=== PATIENT | female | born 1970 | race Caucasian/White ===

== ENCOUNTER → 2016-05-23 | Outpatient (CLI) | payer OTHER ==
[2016-05-23 07:09] LABS: BASO % 0.4 % (0.0-1.0); EOS # 0.2 K/mm3 (0.0-0.50); EOS % 2.8 % (0.0-3.0); LARGE UNSTAINED CELL # 0.1 K/mm3 (0.0-0.4); LARGE UNSTAINED CELL % 1.5 % (0.0-4.0); LYMPH # 2.3 K/mm3 (1.5-4.5); LYMPH % 36.5 % (24.0-44.0); MEAN CORPUSCULAR HEMOGLOBIN 28.7 pg (27.0-33.0); MEAN CORPUSCULAR VOLUME 89.7 fl (80.0-96.0); MONO # 0.3 K/mm3 (0.0-0.8); MONO % 4.8 % (0.0-5.0); NEUTROPHILS # 3.4 K/mm3 (1.8-7.7); NEUTROPHILS % 54.1 % (36.0-66.0); PLATELET COUNT, AUTOMATED 292 k/mm3 (150-450); RED CELL DISTRIBUTION WIDTH 12.4 % (11.5-14.5); WHITE BLOOD COUNT 6.2 K/mm3 (4.0-10.0)
[2016-05-23 07:41] LABS: ALBUMIN 3.6 GM/DL (3.2-5.2); ALKALINE PHOSPHATASE 85 U/L (45-117); ALT/SGPT 18 U/L (12-78); ANION GAP 6 MEQ/L (8-16); AST/SGOT 10 U/L (15-37); BILIRUBIN,TOTAL 0.2 MG/DL (0.2-1.0); BLOOD UREA NITROGEN 19 MG/DL (7-18); CALCIUM LEVEL 8.6 MG/DL (8.5-10.1); CARBON DIOXIDE LEVEL 33 MEQ/L (21-32); CHLORIDE LEVEL 102 MEQ/L (98-107); CHOLESTEROL LEVEL 196 MG/DL (<200); CREATININE FOR GFR 0.97 MG/DL (0.55-1.02); FREE T4 0.82 NG/DL (0.76-1.46); GLOMERULAR FILTRATION RATE > 60.0 (>58); GLUCOSE, FASTING 99 MG/DL (70-105); POTASSIUM SERUM 4.2 MEQ/L (3.5-5.1); SODIUM LEVEL 141 MEQ/L (136-145); TOTAL PROTEIN 7.6 GM/DL (6.4-8.2); TRIGLYCERIDES LEVEL 178 MG/DL (<150)
[2016-05-23 10:55] LABS: FOLATE 9.9 NG/ML; VITAMIN B12 LEVEL 423 PG/ML
== END ==
LOC: M LAB 06:04
PROVIDERS: ATTEND Emergency Medicine
DX: I10 Essential (primary) hypertension (principal); F43.23 Adjustment disorder with mixed anxiety and depressed mood

== ENCOUNTER → 2018-09-20 | Outpatient (CLI) | payer OTHER ==
[2018-09-20 13:53] LABS: ALBUMIN 3.6 GM/DL (3.2-5.2); ALT/SGPT 18 U/L (12-78); BILIRUBIN,TOTAL 0.2 MG/DL (0.2-1.0); BLOOD UREA NITROGEN 16 MG/DL (7-18); CALCIUM LEVEL 8.8 MG/DL (8.5-10.1); CARBON DIOXIDE LEVEL 30 MEQ/L (21-32); CHLORIDE LEVEL 107 MEQ/L (98-107); CHOLESTEROL LEVEL 220 MG/DL (<200); CHOLESTEROL RISK RATIO 4.583 (<5); GLOMERULAR FILTRATION RATE > 60.0 (>51); GLUCOSE, FASTING 95 MG/DL (70-100); HDL CHOLESTEROL 48 MG/DL (>40); LDL CHOLESTEROL 142 MG/DL (<100); NON-HDL-C 172 MG/DL; POTASSIUM SERUM 4.7 MEQ/L (3.5-5.1); SODIUM LEVEL 142 MEQ/L (136-145); TOTAL PROTEIN 7.5 GM/DL (6.4-8.2); TRIGLYCERIDES LEVEL 148 MG/DL (<150)
[2018-09-20 13:59] LABS: HEMOGLOBIN A1c 6.2 %
== END ==
LOC: M SMT 10:33
PROVIDERS: ATTEND Physician Assistant
DX: I10 Essential (primary) hypertension (principal); G47.00 Insomnia, unspecified; E66.9 Obesity, unspecified

== ENCOUNTER → 2018-12-22 | Outpatient (CLI) | payer OTHER ==
[2018-12-22 17:46] LABS: BLOOD UREA NITROGEN 17 MG/DL (7-18); CALCIUM LEVEL 9.2 MG/DL (8.5-10.1); CARBON DIOXIDE LEVEL 30 MEQ/L (21-32); CHLORIDE LEVEL 103 MEQ/L (98-107); CREATININE FOR GFR 1.03 MG/DL (0.55-1.30); GLOMERULAR FILTRATION RATE > 60.0 (>51); GLUCOSE, FASTING 126 MG/DL (70-100); SODIUM LEVEL 138 MEQ/L (136-145)
== END ==
LOC: M WUC 12:27
PROVIDERS: ATTEND Physician Assistant
DX: I10 Essential (primary) hypertension (principal)

== ENCOUNTER 2019-10-16 09:09 | Emergency (ER) | payer OTHER ==
[~2019-10-16] VITALS: Ht 154.9 cm; Wt 86.4 kg
[2019-10-16] MEDS ORDERED: GABA-843 (10:17)
[2019-10-16] MEDS ORDERED: PROP40TA62 (10:17)
[2019-10-16] MEDS ORDERED: FAMO40TA3 (10:17)
[2019-10-16] MEDS ORDERED: MYRB50TA (10:17)
[2019-10-16] MEDS ORDERED: VIIB10TA (10:17)
--- NOTE | 2019-10-16 11:05 | REPVR ---
PROCEDURE INFORMATION: Exam: XR Left Knee Exam date and time: 10/16/2019 10:45 AM Age: 49 years old Clinical indication: Pain; Knee; Left; Additional info: Nontraumatic pain TECHNIQUE: Imaging protocol: XR Left knee. Views: Frontal, lateral, 2 oblique, and patellar views. COMPARISON: No relevant prior studies available. FINDINGS: Bones/joints: Normal. Soft tissues: Normal. IMPRESSION: No acute findings. Electronically signed by: Des Bush On 10/16/2019 11:05:30 AM
[2019-10-16] MEDS ORDERED: MOBI4TAB PO (11:21)
[2019-10-16 11:28] VITALS: BP 155/96
[2019-10-16] MEDS ORDERED: IBUPROFEN 600MG TAB PO ONE (11:30)
== END 2019-10-16 11:41 | disposition home or self-care (01) ==
LOC: M ED 09:09
DX: M25.562 Pain in left knee (principal); I10 Essential (primary) hypertension; K21.9 Gastro-esophageal reflux disease without esophagitis; F33.9 Major depressive disorder, recurrent, unspecified; G89.29 Other chronic pain; M54.9 Dorsalgia, unspecified; Z79.899 Other long term (current) drug therapy; Z88.0 Allergy status to penicillin; Z88.1 Allergy status to other antibiotic agents; Z88.2 Allergy status to sulfonamides; Z88.8 Allergy status to other drugs, medicaments and biological substances

== ENCOUNTER → 2020-10-08 | Outpatient (CLI) | payer OTHER ==
[~2020-10-08] MED LIST: FAMO40TA3; GABA-282; MOBI4TAB PO; MYRB50TA; PROP40TA62; VIIB10TA
--- NOTE | 2020-10-08 14:01 | REPMRS ---
Patient History The patient states she has not had a clinical breast exam in over a year. Patient is postmenopausal. Family history of breast cancer at age 50 or over in paternal grandmother, breast cancer at age 50 or over in maternal grandmother, pancreatic cancer at age 50 in paternal aunt. Patient states no breast complaints today. Patient has signed MRS History Sheet. Digital Woman Screen Mammo: October 08, 2020 - Exam #: [id number] Bilateral CC and MLO view(s) were taken. Technologist: Consuelo Smyth, Technologist Prior study comparison: September 20, 2018, bilateral digital mammo screening bilat, performed at [facility]. May 23, 2016, bilateral digital mammo screening bilat, performed at [facility]. September 22, 2014, bilateral digital mammo screening bilat, performed at [facility] [employer]. FINDINGS: There are scattered fibroglandular densities. The Volpara volumetric breast density category is:B. There has been no change in the appearance of the mammogram from the prior studies. There is a mild amount of scattered fibroglandular density which is fairly symmetric. There is no interval development of dominant mass, architectural distortion, or grouped microcalcification suggestive of malignancy. 3-D tomosynthesis shows no additional findings. Assessment: BI-RADS/ACR category 1 mammogram. Negative Mammogram. Recommendation Routine screening mammogram of both breasts in 1 year (for women over age 40). This patient's [facility] Lifetime Breast Cancer Risk is estimated at 19.8 %. This mammogram was interpreted with the aid of an FDA-approved computer-aided dectection system. Electronically Signed By: Jaylon Wallace MD 10/08/20 [id number]
== END ==
LOC: M WHC 12:51
PROVIDERS: ATTEND Family Medicine
DX: Z12.31 Encounter for screening mammogram for malignant neoplasm of breast (principal); Z78.0 Asymptomatic menopausal state; Z80.3 Family history of malignant neoplasm of breast; Z80.8 Family history of malignant neoplasm of other organs or systems

== ENCOUNTER → 2020-11-20 | Outpatient (CLI) | payer OTHER ==
[~2020-11-20] MED LIST changes: -FAMO40TA3; +FAMO40TA3 PO; -MYRB50TA; +MYRB50TA PO; +PRIM50TA6 PO; -VIIB10TA; +VIIB10TA PO; +VITA200015 PO
== END ==
LOC: M LABSMTC 09:21
PROVIDERS: ATTEND Anesthesiology
DX: Z20.828 Contact with and (suspected) exposure to other viral communicable diseases (principal); Z11.52 Encounter for screening for COVID-19

== ENCOUNTER 2020-11-25 08:34 | Day surgery (SDC) | payer OTHER ==
[~2020-11-25] VITALS: Ht 154.9 cm; Wt 82.9 kg
[~2020-11-25 08:34] MED LIST changes: +NS 1,000 ML IV ONE
--- OUTSIDE RECORDS SUMMARY | 2020-11-25 08:39 | CCD | Continuity of Care Document ---
Author Author Coni BERGER M.D. Organization Unknown Address [address] [place] [address] Phone [phone] Care Team Providers Care Presidential Helicopter Crew Chief Name Role Phone Letha Christie N.P. AUTM [phone] AUTM Unavailable Problems Description No Information Available Social History Type Date Description Comments Sex Unknown ETOH Use 1-2 A Week Tobacco Use Start: Unknown Denies Smoking Recreational Drug Use Denies Drug Use Allergies, Adverse Reactions, Alerts Active Allergies Criticality Reaction | Severity Comments Date Macrobid Unable to assess criticality fever/chills 09/08/2020 Sulfa Unable to assess criticality Hives 09/08/2020 Medications Active Medications SIG Qnty Indications Ordering Provide r Date Propranolol HCL 40mg Tablets 1 po daily Petrancosta, Bambi Winn, P.A. Primidone 50mg Tablets Take 1/2 Tablet By Mouth Every Day Unknown Famotidine 40mg Tablets 1 po daily Pleskach, Letha, N.P. Vitamin D3 1.25mg (79311 Ut) Capsu les 1 time weekly Pleskach, Letha, N.P. Viibryd 10mg Tablets 2 po 1 time daily Pleskach, Letha, N.P. Myrbetriq 50mg Tablets ER 24HR 1 po daily Unknown Potassium Citrate ER 10Meq (1080 mg) Tablets ER 1 po bid Unknown Immunizations Description No Information Available Vital Signs Date Vital Result Comment 09/08/2020 1:17pm BP Systolic 128 mmHg BP Diastolic 90 mmHg Height 60.5 inches 5'0.50" Weight 187.25 lb BMI (Body Mass Index) 36.0 kg/m2 [place] Body Weight 100 lb Weight 84.937 kg BSA (Body Surface Area) 1.83 m2 Results Description No Information Available Procedures Description No Information Available Medical Devices Description No Information Available Encounters Description No Information Available Assessments Date Code Description Provider 09/08/2020 Z12.11 Encounter for screening for tomasz gnant neoplasm of colon Reji Berger M.D. Plan of Treatment Future Appointment(s):* 12/09/2020 10:00 am - PRAVEENA Brown at [facility] * 11/25/2020 10:30 am - Reji Berger M.D. at [facility] 09/08/2020 - Reji Berger M.D.* Z12.11 Encounter for screening for malignant neoplasm of colon* Comments:* Patient was counselled for colonscopy to include indications, risks, and possible benefits. Risks include but are not limited to bleeding, adverse drug reaction, and perforation. Patient was counselled regarding the need for a bowel prep. Patient had the opportunity to ask questions. Patient desires to proceed with colonoscopy. This will be scheduled in [facility]. * Follow up:* Patient will be scheduled for a colonoscopy in [facility]. Functional Status Description No Information Available Mental Status Description No Information Available Referrals Refer to Reason for Referral Status Appt Date Reji Berger M.D. COLONOSCOPY Scheduled 08/25/2020 [facility] [address] [place] [id number] [phone]
--- OUTSIDE RECORDS SUMMARY | 2020-11-25 08:39 | CCD | Continuity of Care Document ---
Author Author Coni [facility]STIE [facility] Organization Unknown Address [address] [place] [address] Phone [phone] Care Team Providers Care Price Checker Name Role Phone Kalia Goetz MD AUTM [phone] Tye Yoon MD AUTM [phone] Tracy Joshi AUTM [phone] Jose Schaeffer DPM AUTM [phone] [facility] - Surgery AUTM [phone] Problems Active Problems Provider Date Essential hypertension Des Quintana M.D. Onset: Premenstrual tension syndrome Des Quintana M.D. Ons et: 07/22/2010 Depressive disorder Des Quintana M.D. Onset: 2010 Dysmenorrhea Des Quintana M.D. Onset: 2010 Kidney stone Des Quintana M.D. Onset: 2010 Allergic rhinitis Des Quitnana M.D. Onset: 2011 Lichen Des Quintana M.D. Onset: 2012 Adjustment disorder with mixed emotional features Brannon Quintana M.D. 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 Social History Type Date Description Comments Sex Unknown Tobacco Use Start: Unknown Never Smoked Cigarettes Tobacco Use Start: Unknown Never Used Smokeless Tobacco ETOH Use Denies alcohol use Tobacco Use Start: Unknown Patient has never smoked Recreational Drug Use Denies Drug Use Smoking Status Reviewed: 10/20/20 Patient has never smoked Exercise Type/Frequency Exercises sporadically Tattoo/Piercing Pierced ears Sun Exposure Uses sunscreen Seat Belt/Car Seat Always uses seat belt Bike Helmet Always Smoke Alarms Yes Smoke Alarms Carbon Monoxide Detector: Yes Allergies and adverse reactions Active Allergies Criticality Reaction | Severity Comments Date Sulfa Unable to assess criticality 03/19/2002 Macrobid Unable to assess criticality 03/19/2002 Medications Active Medications SIG Qnty Indications Ordering Provide r Date Primidone 50mg Tablets 2 by mouth every day 60tabs G25.0 Letha Christie FNP 08/17/2020 Vitamin D3 1.25mg (83814 Ut) Capsu les 1 cap by mouth every week 12caps Letha Christie FNP 09/2019 Viibryd 10mg Tablets 2 tablets by mouth daily 180tabs Letha Christie FNP 06/24/2019 Famotidine 40mg Tablets take one tablet by mouth every evening - replaces ranitidine 90tabs Letha Steward ch DRUM BUILDER 03/27/2019 Myrbetriq 50mg Tablets ER 24HR 1 tab by mouth every morning for overactive bladder Unkno wn Immunizations CPT Code Status Date Vaccine Lot # [id number] Given 04/13/2020 Pfizer-Sars-(Cov id-19) vaccine, mRNA, LNP-S, PF, 30 mcg/ 0.3 mL [id number] Given 03/21/2020 Pfizer-Sars-(Cov id-19) vaccine, mRNA, LNP-S, PF, 30 mcg/ 0.3 mL [id number] Given 10/16/2011 MMR [id number] Vital Signs Date Vital Result Comment 10/20/2020 3:56pm BP Systolic 113 mmHg BP Diastolic 85 mmHg Heart Rate 93 /min Body Temperature 97.4 F Respiratory Rate 16 /min Height 61.25 inches 5'1.25" Weight 190.12 lb O2 % BldC Oximetry 95 % Peak Expiratory Flow Rate 331 Estimated Peak Flow Rate [place] Body Weight 105 lb BMI (Body Mass Index) 35.6 kg/m2 08/17/2020 1:28pm BP Systolic 114 mmHg BP Diastolic 87 mmHg Heart Rate 105 /min Body Temperature 97.6 F Respiratory Rate 18 /min Height 61.25 inches 5'1.25" Weight 191.50 lb O2 % BldC Oximetry 98 % Peak Expiratory Flow Rate 331 Estimated Peak Flow Rate [place] Body Weight 105 lb BMI (Body Mass Index) 35.9 kg/m2 Results Test Acquired Date Facility Test Result H/L Range Note Coronavirus 2019 Nasopharygeal 11/20/[address] [place] [facility] [place] [address] [phone] Coronavirus 2019 Nasopharygeal ASSAY INFORMATIO <SEE N OTE> 1 1 ASSAY INFORMATION: Real Time RT-PCR NOTE: The COVID-19 assay has been cleared by the U.S. Food and Drug Administration under the Emergency Use Authorization (EUA). [facility] and [facility] are designated as high complexity laboratories by the Clinical Laboratory Improvement Amendments of 1988(CLIA) and are qualified to perform this test. Not Detected Procedures Date Code Description Status 10/20/2020 91850 Office/Outpatient Established Mo d MDM 30-39 Min Completed 10/08/2020 [id number] Mammogram Completed 08/17/2020 38639 Preventive Medicine 40/64 Years, Est. Completed 08/17/2020 13406 Office/Outpatient Established Mo d MDM 30-39 Min Completed 09/22/2014 [id number] Mammogram Completed Medical Devices Description No Information Available Encounters Type Date Location Provider Dx Diagnosis Office Visit 10/20/2020 4:00p Main Office Letha Christie FNP I10 Essential (primary) hypertension F43.23 Adjustment disorder with mix ed anxiety and depressed mood G25.0 Essential tremor N32.81 Overactive bladder Office Visit 08/17/2020 1:45p Main Office Letha Christie DRUM BUILDER Z00.0 0 Encntr for general adult medical exam w/o abnormal findings I10 Essential (primary) hyperten deangelo F43.23 Adjustment disorder with mix ed anxiety and depressed mood G25.0 Essential tremor N32.81 Overactive bladder Assessments Date Code Description Provider 10/20/2020 I10 Essential (primary) hypertension Letha Christie DRUM BUILDER 10/20/2020 F43.23 Adjustment disorder with mixed a nxiety and depressed mood Letha Christie DRUM BUILDER 10/20/2020 G25.0 Essential tremor PleLetha wilson , DRUM BUILDER 10/20/2020 N32.81 Overactive bladder Lisa Christie ly, DRUM BUILDER 08/17/2020 Z00.00 Encounter for genera l adult medical examination without abnormal findings Letha Christie, DRUM BUILDER 08/17/2020 I10 Essential (primary) hypertension Letha Christie, DRUM BUILDER 08/17/2020 F43.23 Adjustment disorder with mixed a nxiety and depressed mood Letha Christie, DRUM BUILDER 08/17/2020 G25.0 Essential tremor PleLetha wilson , DRUM BUILDER 08/17/2020 N32.81 Overactive bladder Lisa Christie ly, DRUM BUILDER Plan of Treatment Future Appointment(s):* 01/19/2021 4:15 pm - Letha Christie FNP at Main Office 10/20/2020 - Letha Christie FNP* I10 Essential (primary) hypertension* Comments:* controlled, continue current medications * F43.23 Adjustment disorder with mixed anxiety and depressed mood* Comments:* doing well on current medication, feels she has adequate coping mechanisms * G25.0 Essential tremor* Comments:* increase primidone * Follow up:* 3 months * N32.81 Overactive bladder Functional Status Functional Condition Comment Date Status Bifocal glasses Active Independent with all ADL's Activ e Negative for Fall Risk Inactive Negative for Cognitive Impairment Inactive Mental Status Mental Condition Comment Date Status None Active Referrals Refer to Dr Reason for Referral Status Appt Date [facility] Patient is due for 1st screening colonoscopy. Thank you. Closed 08/25/[address] [place] [address], [address] [place] [address] [phone]
--- OUTSIDE RECORDS SUMMARY | 2020-11-25 08:39 | CCD | Continuity of Care Document ---
Author Author Coni [facility] Organization Unknown Address [address] [place] [address] Phone [phone] Care Team Providers Care Classification Analyst Name Role Phone Kalia Goetz MD AUTM [phone] Tye Yoon MD AUTM [phone] Tracy Joshi AUTM [phone] Jose Schaeffer DPM AUTM [phone] [facility] - Surgery AUTM [phone] Problems Active Problems Provider Date Essential hypertension Des Quintana M.D. Onset: Premenstrual tension syndrome Des Quintana M.D. Ons et: 07/22/2010 Depressive disorder Des Quintana M.D. Onset: 2010 Dysmenorrhea Des Quintana M.D. Onset: 2010 Kidney stone Des Quintana M.D. Onset: 2010 Allergic rhinitis Des Quintana M.D. Onset: 2011 Lichen Des Quintana M.D. [...] Yes Smoke Alarms Carbon Monoxide Detector: Yes Allergies, Adverse Reactions, Alerts Active Allergies Criticality Reaction | Severity Comments Date Sulfa Unable to assess criticality 03/19/2002 Macrobid Unable to assess criticality 03/19/2002 Medications Active Medications SIG Qnty Indications Ordering Provide r Date Primidone 50mg Tablets 2 by mouth every day 60tabs G25.0 Letha Christie FNP 08/17/2020 Vitamin D3 1.25mg (96556 Ut) Capsu les 1 cap by mouth every week 12caps Letha Christie FNP 09/2019 Viibryd 10mg Tablets 2 tablets by mouth daily 180tabs Letha Christie FNP 06/24/2019 Famotidine 40mg Tablets take one tablet by mouth every evening - replaces ranitidine 90tabs Letha Steward ch, FNP 03/27/2019 Myrbetriq 50mg Tablets ER 24HR 1 tab by mouth every morning for overactive bladder Unkno wn Immunizations CPT Code Status Date Vaccine Lot # [id number] Given 04/13/2020 TriggerMail-Sars-(Cov id-19) vaccine, mRNA, LNP-S, PF, 30 mcg/ 0.3 mL [id number] Given 03/21/2020 Pfizer-Sars-(Cov id-19) vaccine, mRNA, LNP-S, PF, 30 mcg/ 0.3 mL [id number] Given 10/16/2011 MMR [id number] Vital Signs Date Vital Result Comment 10/20/2020 3:56pm BP Systolic 113 mmHg BP Diastolic 85 mmHg Heart Rate 93 /min Body Temperature 97.4 F Respiratory Rate 16 /min Height 61.25 inches 5'1.25" Weight 190.12 lb O2 % BldC Oximetry 95 % Peak Expiratory Flow Rate 331 Estimated Peak Flow Rate [place] Body Weight 105 lb BMI (Body Mass Index) 35.6 kg/m2 08/17/2020 1:28pm BP Systolic 114 mmHg BP Diastolic 87 mmHg Heart Rate 105 /min Body Temperature 97.6 F Respiratory Rate 18 /min Height 61.25 inches 5'1.25" Weight 191.50 lb O2 % BldC Oximetry 98 % Peak Expiratory Flow Rate 331 Estimated Peak Flow Rate [place] Body Weight 105 lb BMI (Body Mass Index) 35.9 kg/m2 Results Description No Information Available Procedures Date Code Description Status 10/20/2020 82197 Office/Outpatient Established Mo d MDM 30-39 Min Completed 10/08/2020 [id number] Mammogram Completed 08/17/2020 69793 Preventive Medicine 40/64 Years, Est. Completed 08/17/2020 93481 Office/Outpatient Established Mo d MDM 30-39 Min Completed 09/22/2014 [id number] Mammogram Completed Medical Devices Description No Information Available Encounters Type Date Location Provider Dx Diagnosis Office Visit 10/20/2020 4:00p Main Office Pleskach, Letha, CNA GNA I10 Essential (primary) hypertension F43.23 Adjustment disorder with mix ed anxiety and depressed mood G25.0 Essential tremor N32.81 Overactive bladder Office Visit 08/17/2020 1:45p Main Office Pleskach, Letha, CNA GNA Z00.0 0 Encntr for general adult medical exam w/o abnormal findings I10 Essential (primary) hyperten deangelo F43.23 Adjustment disorder with mix ed anxiety and depressed mood G25.0 Essential tremor N32.81 Overactive bladder Assessments Date Code Description Provider 10/20/2020 I10 Essential (primary) hypertension Pleskach, Letha, CNA GNA 10/20/2020 F43.23 Adjustment disorder with mixed a nxiety and depressed mood Pleskach, Letha, CNA GNA 10/20/2020 G25.0 Essential tremor Pleskach, Letha , CNA GNA 10/20/2020 N32.81 Overactive bladder Pleskach, Mol ly, CNA GNA 08/17/2020 Z00.00 Encounter for genera l adult medical examination without abnormal findings Pleskach, Letha, CNA GNA 08/17/2020 I10 Essential (primary) hypertension Pleskach, Letha, CNA GNA 08/17/2020 F43.23 Adjustment disorder with mixed a nxiety and depressed mood Pleskach, Letha, CNA GNA 08/17/2020 G25.0 Essential tremor Pleskach, Letha , CNA GNA 08/17/2020 N32.81 Overactive bladder Lisa Christie FNP Plan of Treatment Future Appointment(s):* 01/19/2021 4:15 [...] Date Status None Active Referrals Refer to Reason for Referral Status Appt Date [facility] Patient is due for 1st screening colonoscopy. Thank you. Closed 08/25/[address] [place] [address], [address] [place] [address] [phone]
--- OUTSIDE RECORDS SUMMARY | 2020-11-25 08:40 | CCD ---
Author Author [facility] Organization [facility] Address Unknown Phone Unavailable Care Team Providers Care Pump Press Operator Name Role Phone SHANON, Rosanna SCOTT PA Unavailable Unavailable LETTIERE, A TYLER PA Unavailable Unavailable LETTIERE, A TYLER PA Unavailable Unavailable LETTIERE, A TYLER PA Unavailable Unavailable LETTIERE, A TYLER PA Unavailable Unavailable LETTIERE, A TYLER PA Unavailable Unavailable LETTIERE, A TYLER PA Unavailable Unavailable LETTIERE, A TYLER PA Unavailable Unavailable LETTIERE, A TYLER PA Unavailable Unavailable LETTIERE, A TYLER PA Unavailable Unavailable LETTIERE, A TYLER PA Unavailable Unavailable LETTIERE, A TYLER PA Unavailable Unavailable LETTIERE, A TYLER PA Unavailable Unavailable LETTIERE, A TYLER PA Unavailable Unavailable LETTIERE, A TYLER PA Unavailable Unavailable LETTIERE, A TYLER PA Unavailable Unavailable LETTIERE, A TYLER PA Unavailable Unavailable LETTIERE, A TYLER PA Unavailable Unavailable LETTIERE, A TYLER PA Unavailable Unavailable LETTIERE, A TYLER PA Unavailable Unavailable LETTIERE, A TYLER PA Unavailable Unavailable LETTIERE, A TYLER PA Unavailable Unavailable LETTIERE, A TYLER PA Unavailable Unavailable LETTIERE, A TYLER PA Unavailable Unavailable LETTIERE, A TYLER PA Unavailable Unavailable LETTIERE, A TYLER PA Unavailable Unavailable LETTIERE, A TYLER PA Unavailable Unavailable LETTIERE, A TYLER PA Unavailable Unavailable LETTIERE, A TYLER PA Unavailable Unavailable LETTIERE, A TYLER PA Unavailable Unavailable LETTIERE, A TYLER PA Unavailable Unavailable MARJORIE WALTERS MD Unavailable Unavailable MARJORIE WALTERS MD Unavailable Unavailable MARJORIE WALTERS MD Unavailable Unavailable MARJORIE WALTERS MD Unavailable Unavailable MARJORIE WALTERS MD Unavailable Unavailable MARJORIE WALTERS MD Unavailable Unavailable MARJORIE WALTERS MD Unavailable Unavailable MARJORIE WALTERS MD Unavailable Unavailable MARJORIE WALTESR MD Unavailable Unavailable MARJORIE WALTERS MD Unavailable Unavailable MARJORIE WALTERS MD Unavailable Unavailable MARJORIE WALTERS MD Unavailable Unavailable MARJORIE WALTERS MD Unavailable Unavailable MARJORIE WALTERS MD Unavailable Unavailable MARJORIE WALTERS MD Unavailable Unavailable MARJORIE WALTERS MD Unavailable Unavailable MARJORIE WALTERS MD Unavailable Unavailable MARJORIE WALTERS MD Unavailable Unavailable MARJORIE WALTERS MD Unavailable Unavailable MARJORIE WALTERS MD Unavailable Unavailable MARJORIE WALTERS MD Unavailable Unavailable MARJORIE WALTERS MD Unavailable Unavailable MARJORIE WALTERS MD Unavailable Unavailable MARJORIE WALTERS MD Unavailable Unavailable MARJORIE WALTERS MD Unavailable Unavailable MARJORIE WALTERS MD Unavailable Unavailable MARJORIE WALTERS MD Unavailable Unavailable MARJORIE WALTERS MD Unavailable Unavailable MARJORIE WALTERS MD Unavailable Unavailable MARJORIE WALTERS MD Unavailable Unavailable MARJORIE WALTERS MD Unavailable Unavailable MARJORIE WALTERS MD Unavailable Unavailable MARJORIE WALTERS MD Unavailable Unavailable MARJORIE WALTERS MD Unavailable Unavailable MARJORIE WALTERS MD Unavailable Unavailable MARJORIE WALTERS MD Unavailable Unavailable MARJORIE WALTERS MD Unavailable Unavailable MARJORIE WALTERS MD Unavailable Unavailable MARJORIE WALTERS MD Unavailable Unavailable MARJORIE WALTERS MD Unavailable Unavailable MARJORIE WALTERS MD Unavailable Unavailable MARJORIE WALTERS MD Unavailable Unavailable MARJORIE WALTERS MD Unavailable Unavailable MARJORIE AWLTERS MD Unavailable Unavailable MARJORIE WALTERS MD Unavailable Unavailable MARJORIE WALTERS MD Unavailable Unavailable MARJORIE WALTERS MD Unavailable Unavailable MARJORIE WALTERS MD Unavailable Unavailable MARJORIE WALTERS MD Unavailable Unavailable MARJORIE WALTERS MD Unavailable Unavailable MARJORIE WALTERS MD Unavailable Unavailable MARJORIE WALTERS MD Unavailable Unavailable MARJORIE WALTERS MD Unavailable Unavailable MARJORIE WALTERS MD Unavailable Unavailable MARJORIE WALTERS MD Unavailable Unavailable MARJORIE WALTERS MD Unavailable Unavailable MARJORIE WALTERS MD Unavailable Unavailable MARJORIE WALTERS MD Unavailable Unavailable MARJORIE WALTERS MD Unavailable Unavailable MARJORIE WALTERS MD Unavailable Unavailable RODRICKMARJORIE MD Unavailable Unavailable RODRICKMARJORIE MD Unavailable Unavailable RODRICKMARJORIE MD Unavailable Unavailable RODRICKMARJORIE MD Unavailable Unavailable RODRICKMARJORIE MD Unavailable Unavailable RODRICKMARJORIE MD Unavailable Unavailable RODRICKMARJORIE MD Unavailable Unavailable RODRICKMARJORIE MD Unavailable Unavailable RODRICKMARJORIE MD Unavailable Unavailable RODRICKMARJORIE MD Unavailable Unavailable RODRICKMARJORIE MD Unavailable Unavailable RODRICKMARJORIE MD Unavailable Unavailable RODRICKMARJORIE MD Unavailable Unavailable RODRICKMARJORIE MD Unavailable Unavailable RODRICKMARJORIE MD Unavailable Unavailable RODRICK, MARJORIE MD Unavailable Unavailable Rosano, Dario PA-C Unavailable Unavailable Rosano, Dario PA-C Unavailable Unavailable Rosano, Dario PA-C Unavailable Unavailable Rosano, Draio PA-C Unavailable Unavailable Rosano, Dario PA-C Unavailable Unavailable Rosano, Dario PA-C Unavailable Unavailable Rosano, Dario PA-C Unavailable Unavailable Rosano, Dario PA-C Unavailable Unavailable Rosano, Dario PA-C Unavailable Unavailable Rosano, Dario PA-C Unavailable Unavailable Rosano, Dario PA-C Unavailable Unavailable Rosano, Dario PA-C Unavailable Unavailable Rosano, Dario PA-C Unavailable Unavailable Rosano, Dario PA-C Unavailable Unavailable Rosano, Dario PA-C Unavailable Unavailable Rosano, Dario PA-C Unavailable Unavailable Rosano, Dario PA-C Unavailable Unavailable Rosano, Dario PA-C Unavailable Unavailable Rosano, Dario PA-C Unavailable Unavailable Rosano, Dario PA-C Unavailable Unavailable Rosano, Dario PA-C Unavailable Unavailable Rosano, Dario PA-C Unavailable Unavailable Rosano, Dario PA-C Unavailable Unavailable Rosano, Dario PA-C Unavailable Unavailable Rosano, Dario PA-C Unavailable Unavailable Pleskach, Letha DESIGN DIRECTOR Unavailable Unavailable Pleskach, Letha DESIGN DIRECTOR Unavailable Unavailable Pleskach, Letha DESIGN DIRECTOR Unavailable Unavailable Pleskach, Letha DESIGN DIRECTOR Unavailable Unavailable Pleskach, Letha DESIGN DIRECTOR Unavailable Unavailable Pleskach, Letha DESIGN DIRECTOR Unavailable Unavailable Pleskach, Letha DESIGN DIRECTOR Unavailable Unavailable Pleskach, Letha DESIGN DIRECTOR Unavailable Unavailable Pleskach, Letha DESIGN DIRECTOR Unavailable Unavailable Pleskach, Letha DESIGN DIRECTOR Unavailable Unavailable Pleskach, Letha DESIGN DIRECTOR Unavailable Unavailable Pleskach, Letha DESIGN DIRECTOR Unavailable Unavailable Pleskach, Letha DESIGN DIRECTOR Unavailable Unavailable Pleskach, Letha DESIGN DIRECTOR Unavailable Unavailable Pleskach, Letha DESIGN DIRECTOR Unavailable Unavailable Pleskach, Letha DESIGN DIRECTOR Unavailable Unavailable Pleskach, Letha DESIGN DIRECTOR Unavailable Unavailable Pleskach, Letha DESIGN DIRECTOR Unavailable Unavailable Pleskach, Letha DESIGN DIRECTOR Unavailable Unavailable Pleskach, Letha DESIGN DIRECTOR Unavailable Unavailable Pleskach, Letha DESIGN DIRECTOR Unavailable Unavailable Pleskach, Letha DESIGN DIRECTOR Unavailable Unavailable Pleskach, Letha DESIGN DIRECTOR Unavailable Unavailable Pleskach, Letha DESIGN DIRECTOR Unavailable Unavailable Pleskach, Letha DESIGN DIRECTOR Unavailable Unavailable Pleskach, Letha DESIGN DIRECTOR Unavailable Unavailable Pleskach, Letha DESIGN DIRECTOR Unavailable Unavailable Pleskach, Letha DESIGN DIRECTOR Unavailable Unavailable Pleskach, Letha DESIGN DIRECTOR Unavailable Unavailable Pleskach, Letha DESIGN DIRECTOR Unavailable Unavailable Pleskach, Letha DESIGN DIRECTOR Unavailable Unavailable Pleskach, Letha DESIGN DIRECTOR Unavailable Unavailable Pleskach, Letha DESIGN DIRECTOR Unavailable Unavailable Pleskach, Letha DESIGN DIRECTOR Unavailable Unavailable Pleskach, Letha DESIGN DIRECTOR Unavailable Unavailable Pleskach, Letha DESIGN DIRECTOR Unavailable Unavailable Pleskach, Letha DESIGN DIRECTOR Unavailable Unavailable Pleskach, Lehta DESIGN DIRECTOR Unavailable Unavailable Pleskach, Letha DESIGN DIRECTOR Unavailable Unavailable Pleskach, Letha DESIGN DIRECTOR Unavailable Unavailable Pleskach, Letha DESIGN DIRECTOR Unavailable Unavailable Pleskach, Letha DESIGN DIRECTOR Unavailable Unavailable Lewis Payne MD Unavailable Unavailable Lewis Payne MD Unavailable Unavailable Lewis Payne MD Unavailable Unavailable Lewis Payne MD Unavailable Unavailable Lewis Payne MD Unavailable Unavailable Lewis Payne MD Unavailable Unavailable Lewis Payne MD Unavailable Unavailable Lewis Payne MD Unavailable Unavailable Lewis Payne MD Unavailable Unavailable Lewis Payne MD Unavailable Unavailable Lewis Payne MD Unavailable Unavailable Lewis Payne MD Unavailable Unavailable Lewis Payne MD Unavailable Unavailable Lewis Payne MD Unavailable Unavailable Lewis Payne MD Unavailable Unavailable Lewis Payne MD Unavailable Unavailable Lewis Payne MD Unavailable Unavailable Lewis Payne MD Unavailable Unavailable Lewis Payne MD Unavailable Unavailable Lewis Payne MD Unavailable Unavailable Lewis Payne MD Unavailable Unavailable McHLewis julien MD Unavailable Unavailable McHone, R Tye CANCINO Unavailable Unavailable McHone, R Tye CANCINO Unavailable Unavailable McHone, R Tye CANCINO Unavailable Unavailable McHone, R Tye CANCINO Unavailable Unavailable McHone, R Tye CANCINO Unavailable Unavailable McHone, R Tye CANCINO Unavailable Unavailable McHone, R Tye CANCINO Unavailable Unavailable McHone, R Tye CANCINO Unavailable Unavailable McHone, R Tye CANCINO Unavailable Unavailable McHone, R Tye CANCINO Unavailable Unavailable McHone, R Tye CANCINO Unavailable Unavailable McHone, R Tye CANCINO Unavailable Unavailable McHone, R Tye CANCINO Unavailable Unavailable McHone, R Tye CANCINO Unavailable Unavailable McHone, R Tye CANCINO Unavailable Unavailable McHone, R Tye CANCINO Unavailable Unavailable McHone, R Tye CANCINO Unavailable Unavailable McHone, R Tye CANCINO Unavailable Unavailable McHone, R Tye CANCINO Unavailable Unavailable McHone, R Tye CANCINO Unavailable Unavailable McHone, R Tye CANCINO Unavailable Unavailable McHone, R Tye CANCINO Unavailable Unavailable McHone, R Tye CANCINO Unavailable Unavailable McHone, R Tye CANCINO Unavailable Unavailable McHone, R Tye CANCINO Unavailable Unavailable McHone, R Tye CANCINO Unavailable Unavailable McHone, R Tye CANCINO Unavailable Unavailable McHone, R Tye CANCINO Unavailable Unavailable McHone, R Tye CANCINO Unavailable Unavailable McHone, R Tye CANCINO Unavailable Unavailable McHone, R Tye CANCINO Unavailable Unavailable McHone, Lewis Gamble MD Unavailable Unavailable McHone, R Tye CANCINO Unavailable Unavailable McHone, R Tye CANCINO Unavailable Unavailable McHone, R Tye CANCINO Unavailable Unavailable McHone, R Tye CANCINO Unavailable Unavailable McHone, R Tye CANCINO Unavailable Unavailable McHone, Lewis Gamble MD Unavailable Unavailable McHone, Lewis Gamble MD Unavailable Unavailable McHone, Lewis Gamble MD Unavailable Unavailable McHone, Lewis Gamble MD Unavailable Unavailable McHone, Lewis Gamble MD Unavailable Unavailable McHone, Lewis Gamble MD Unavailable Unavailable McHone, R Tye CANCINO Unavailable Unavailable McHone, R Tye CANCINO Unavailable Unavailable McHone, Lewis Gamble MD Unavailable Unavailable McHone, Lewis Gamble MD Unavailable Unavailable McHone, Lewis Gamble MD Unavailable Unavailable McHone, Lewis Gamble MD Unavailable Unavailable McHone, Lewis Gamble MD Unavailable Unavailable Scordo, M Evelyn PA Unavailable Unavailable Scordo, M Eevlyn PA Unavailable Unavailable Scordo, M Evelyn PA Unavailable Unavailable Scordo, M Evelyn PA Unavailable Unavailable Scordo, M Evelyn PA Unavailable Unavailable Scordo, M Evelyn PA Unavailable Unavailable Scordo, M Evelyn PA Unavailable Unavailable Scordo, M Evelyn PA Unavailable Unavailable Scordo, M Evelyn PA Unavailable Unavailable Scordo, M Evelyn PA Unavailable Unavailable Scordo, M Evelyn PA Unavailable Unavailable Scordo, M Evelyn PA Unavailable Unavailable Scordo, M Evelyn PA Unavailable Unavailable Scordo, M Evelyn PA Unavailable Unavailable Scordo, M Evelyn PA Unavailable Unavailable Scordo, M Evelyn PA Unavailable Unavailable Scordo, M Evelyn PA Unavailable Unavailable Scordo, M Evelyn PA Unavailable Unavailable Scordo, M Evelyn PA Unavailable Unavailable Scordo, M Evelyn PA Unavailable Unavailable Scordo, M Evelyn PA Unavailable Unavailable Scordo, M Evelyn PA Unavailable Unavailable Scordo, M Evelyn PA Unavailable Unavailable Scordo, M Evelyn PA Unavailable Unavailable Scordo, M Evelyn PA Unavailable Unavailable Scordo, M Evelyn PA Unavailable Unavailable Scordo, M Evelyn PA Unavailable Unavailable Scordo, M Evelyn PA Unavailable Unavailable Scordo, M Evelyn PA Unavailable Unavailable Scordo, M Evelyn PA Unavailable Unavailable Scordo, M Evelyn PA Unavailable Unavailable Scordo, M Evelyn PA Unavailable Unavailable Scordo, M Evelyn PA Unavailable Unavailable Scordo, M Evelyn PA Unavailable Unavailable Scordo, M Evelyn PA Unavailable Unavailable Scordo, M Evelyn PA Unavailable Unavailable Scordo, M Evelyn PA Unavailable Unavailable Scordo, M Evelyn PA Unavailable Unavailable Scordo, M Evelyn PA Unavailable Unavailable Scordo, M Evelyn PA Unavailable Unavailable Scordo, M Evelyn PA Unavailable Unavailable Scordo, M Evelyn PA Unavailable Unavailable Scordo, M Evelyn PA Unavailable Unavailable Scordo, M Evelyn PA Unavailable Unavailable Scordo, M Evelyn PA Unavailable Unavailable Scordo, M Evelyn PA Unavailable Unavailable Scordo, M Evelyn PA Unavailable Unavailable Sohail Mcmullen MD Cristo Unavailable Sohail Mcmullen MD Cristo Unavailable Sohail Mcmullen MD Cristo Unavailable Sohail Mcmullen MD Cristo Unavailable Sohail Mcmullen MD Cristo Unavailable Sohail Mcmullen MD Cristo Unavailable Sohail Mcmullen MD Cristo Unavailable Orio MD, M Cristo Unavailable Orio MD, M Cristo Unavailable Orio MD, M Cristo Unavailable Orio MD, M Cristo Unavailable Orio MD, M Cristo Unavailable Orio MD, M Cristo Unavailable Orio MD, M Cristo Unavailable Orio MD, M Cristo Unavailable Orio MD, M Cristo Unavailable Orio MD, M Cristo Unavailable Orio MD, M Cristo Unavailable Orio MD, M Cristo Unavailable Orio MD, M Cristo Unavailable Orio MD, M Cristo Unavailable Orio MD, M Cristo Unavailable Orio MD, M Cristo Unavailable Orio MD, M Cristo Unavailable Orio MD, M Cristo Unavailable Orio MD, M Cristo Unavailable Orio MD, M Cristo Unavailable Orio MD, M Cristo Unavailable Orio MD, M Cristo Unavailable Orio MD, M Cristo Unavailable Orio MD, M Cristo Unavailable Orio MD, M Cristo Unavailable Orio MD, M Cristo Unavailable Orio MD, M Cristo Unavailable Shabnam Montano Unavailable [phone] Ros Montanoa Unavailable [phone] Dusty Shabnam Unavailable [phone] Dusty, Shabnam Unavailable [phone] Dusty, Shabnam Unavailable [phone] Dusty, Shabnam Unavailable [phone] Dusty, Shabnam Unavailable [phone] Dusty, Shabnam Unavailable [phone] Dusty, Shabnam Unavailable [phone] Dusty, Shabnam Unavailable [phone] Dusty, Shabnam Unavailable [phone] Dusty, Shabnam Unavailable [phone] Dusty, Shabnam Unavailable [phone] Dusty, Shabnam Unavailable [phone] Dusty, Shabnam Unavailable [phone] Dusty, Shabnam Unavailable [phone] Dusty, Shabnam Unavailable [phone] Dusty, Shabnam Unavailable [phone] Dusty, Shabnam Unavailable [phone] Dusty, Shabnam Unavailable [phone] Dusty, Shabnam Unavailable [phone] Dusty, Shabnam Unavailable [phone] Re-disclosure Warning The records that you are about to access may contain information from federally-assisted alcohol or drug abuse programs. If such information is present, then the following federally mandated warning applies: This information has been disclosed to you from records protected by federal confidentiality rules (42 CFR part 2). The federal rules prohibit you from making any further disclosure of this information unless further disclosure is expressly permitted by the written consent of the person to whom it pertains or as otherwise permitted by 42 CFR part 2. A general authorization for the release of medical or other information is NOT sufficient for this purpose. The Federal rules restrict any use of the information to criminally investigate or prosecute any alcohol or drug abuse patient.The records that you are about to access may contain highly sensitive health information, the redisclosure of which is protected by Article 27-F of the [place] State Public Health law. If you continue you may have access to information: Regarding HIV / AIDS; Provided by facilities licensed or operated by the [facility] Office of Mental Health; or Provided by the [facility] Office for People With Developmental Disabilities. If such information is present, then the following [facility] mandated warning applies: This information has been disclosed to you from confidential records which are protected by state law. State law prohibits you from making any further disclosure of this information without the specific written consent of the person to whom it pertains, or as otherwise permitted by law. Any unauthorized further disclosure in violation of state law may result in a fine or intermediate sentence or both. A general authorization for the release of medical or other information is NOT sufficient authorization for further disc losure. Family History Family Member Name Family Member Gender Family Member Status Date o f Status Description Data Source(s) Unknown Unknown Problem [facility] ([facility]) Unknown Female Problem [facility] ([facility] Unknown Female Problem [facility] ([facility] Encounters Encounter Providers Location Date Indications Data Source(s ) Outpatient Attender: Letha Christie [facility] Main Office 10/20/2020 0 4:00:00 PM EDT [facility] ([facility] Outpatient Attender: TYLER serrato 09/24/2020 03:20:00 PM EDT [facility] ([facility] Outpatient Attender: Letha Christie [facility] Main Office 08/17/2020 0 1:45:00 PM EDT [facility] ([facility] Outpatient Attender: Dario GRISSOM-CReferrer: Evelyn Lamb 05/10/2020 07:18:28 AM EDT [facility] Recurring Patient Referrer: Evelyn GRISSOM 05/07/2020 12 :26:28 PM EDT [facility] Outpatient Attender: Dario MCCORDCReferrer: Evelyn Lamb 04/11/2020 09:39:37 PM EST [facility] Outpatient Attender: NAVEN RODRICK MDReferrer: Evelyn GRISSOM 03/09/2020 09:30:44 AM EST [facility] Recurring Patient Referrer: Evelyn GRISSOM 03/09/2020 08 :48:24 AM EST [facility] Recurring Patient Referrer: Evelyn GRISSOM 03/09/2020 08 :47:22 AM EST [facility] Outpatient Attender: Shabnam DustyReferrer: Evelyn GRISSOM 12/22/2019 07:12:35 AM EST [facility] Recurring Patient Referrer: Evelyn GRISSOM 10/29/2019 08 :17:02 AM EDT [facility] Outpatient Attender: Tye Almanza/ Nicole victoria 10/27/2019 08:00:00 AM EDT [facility] ([facility] Out[facility] Attender: Cristo Mcmullen MDReferrer: Evelyn GRISSOM 10/21/2019 02:24:18 PM EDT [facility] Recurring Patient Referrer: Evelyn GRISSOM 10/21/2019 01 :51:31 PM EDT [facility] Recurring Patient Referrer: Evelyn GRISSOM 10/21/2019 01 :50:18 PM EDT [facility] Recurring Patient Referrer: Evelyn GRISSOM 10/17/2019 09 :28:53 AM EDT [facility] Immunizations Vaccine Date Status Description Data Source(s) COVID-19 VACCINE [facility] 04/13/2020 12:00:00 AM EST completed [facility] Vaccine Series Complete: YESThis Data wa s Submitted to [facility] Via [employer]. Nexthink-Sars-(Covid-19) vaccine, mRNA, LNP-S, PF, 30 mc g/ 0.3 mL 04/12/2020 11:00:00 PM EST completed [facility] ([facility] COVID-19 VACCINE Pfizer 03/21/2020 12:00:00 AM EST completed [facility] Vaccine Series Complete: NOThis Data was Submitted to [facility] Via [facility]. Pfizer-Sars-(Covid-19) vaccine, mRNA, LNP-S, PF, 30 mc g/ 0.3 mL 03/20/2020 11:00:00 PM EST completed [facility] ([facility] Medications Medication Brand Name Start Date Product Form Dose Route Admi nistrative Instructions Pharmacy Instructions Status Indications Reaction Description Data Source(s) 50 mg 10/21/2020 12:00:00 AM EDT tablet 60 TAKE TWO TABLETS BY MOUTH EVERY DAY TAKE TWO TABLETS BY MOUTH EVERY DAY SOLD: 10/28/2020 [facility] 875 mg 09/24/2020 12:00:00 AM EDT tablet 20 TAKE ONE TABLET BY MOUTH EVERY 12 HOURS FOR 10 DAYS TAKE ONE TABLET BY MOUTH EVERY 12 HOURS FOR 10 DAYS SO LD: 09/24/2020 [facility] Amoxicillin 875 MG Oral Tablet Amoxicillin 09/24/2020 12:00:00 AM EDT active [facility] ([facility]) 50 mg 2020 12:00:00 AM EDT tablet 30 TAKE 1/2 TABLET BY MOUTH EVERY DAY TAKE 1/2 TABLET BY MOUTH EVERY DAY SOLD: 08/25/2020 [facility] Primidone 50 MG Oral Tablet Primidone 08/17/2020 12:00:00 AM EDT ORAL active [facility] ([facility] Cholecalciferol 03359 UNT Oral Capsule Vitamin D3 01/13/2020 12:0 0:00 AM EST ORAL active [facility] ([facility] potassium citrate 10 MEQ Extended Release Oral Tablet Potass ium Citrate ER 10/27/2019 12:00:00 AM EDT ORAL active [facility] ([facility]) 10 mEq (1,080 mg) 10/27/2019 12:00:00 AM EDT tablet extended release 180 TAKE ONE TABLET BY MOUTH TWICE A DAY TAKE ONE TABLET BY MOUTH TWICE A DAY SOLD: 10/27/2019 [facility] meloxicam 7.5 MG Oral Tablet MELOXICAM 10/16/2019 12:00:00 AM EDT tabl et 30 TAKE ONE TABLET BY MOUTH EVERY DAY WITH FOOD TAKE ONE TABLET BY MOUTH EVERY DAY WITH FOOD SOLD: 10/16/2019 [facility] 10 mg 09/04/2019 12:00:00 AM EDT tablet 60 TAKE 1 TABLET BY MOUTH DAILY FOR 7 DAYS THEN 2 TABLETS BY MOUTH DAILY THEREAFTER TAKE 1 TABLET BY MOUTH DAILY FOR 7 DAYS THEN 2 TABLETS BY MOUTH DAILY THEREAFTER SOLD: 10/18/2019 [facility] 50 mg 08/20/2019 12:00:00 AM EDT tablet extended release 24 hr 30 TAKE ONE TABLET BY MOUTH EVERY DAY TAKE ONE TABLET BY MOUTH EVERY DAY SOLD: 10/18/2019 [facility] 50 mg 08/20/2019 12:00:00 AM EDT tablet extended release 24 hr 30 TAKE ONE TABLET BY MOUTH EVERY DAY TAKE ONE TABLET BY MOUTH EVERY DAY SOLD: 01/19/2020 [facility] 50 mg 08/20/2019 12:00:00 AM EDT tablet extended release 24 hr 30 TAKE ONE TABLET BY MOUTH EVERY DAY TAKE ONE TABLET BY MOUTH EVERY DAY SOLD: 11/21/2019 [facility] 50 mg 08/20/2019 12:00:00 AM EDT tablet extended release 24 hr 30 TAKE ONE TABLET BY MOUTH EVERY DAY TAKE ONE TABLET BY MOUTH EVERY DAY SOLD: 12/19/2019 [facility] 40 mg 08/06/2019 12:00:00 AM EDT tablet 30 TAKE ONE TABLET BY MOUTH EVERY EVENING, REPLACES RANITIDINE TAKE ONE TABLET BY MOUTH EVERY EVENING, REPLACES RANITIDINE SOLD: 11/21/2019 [facility] 40 mg 08/06/2019 12:00:00 AM EDT tablet 30 TAKE ONE TABLET BY MOUTH EVERY EVENING, REPLACES RANITIDINE TAKE ONE TABLET BY MOUTH EVERY EVENING, REPLACES RANITIDINE SOLD: 10/18/2019 [facility] 40 mg 03/28/2019 12:00:00 AM EST tablet 30 TAKE ONE TABLET BY MOUTH EVERY DAY TAKE ONE TABLET BY MOUTH EVERY DAY SOLD: 10/18/2019 [facility] Insurance Providers Payer name Policy type / Coverage type Policy ID Covered alliance party ID Covered alliance party's relationship to woods Policy [place] Plan Information [facility] [id number] [facility] [place] [id number] [facility] [place] [id number] UMR F [id number] SELF [id number] UMR F Pending SELF Pending UMR F [id number] SELF [id number] [facility] O UNAVAILABLE P UN AVAILABLE [employer] [id number] Self [id number] [facility] Health Care Commercial [id number] Self [id number] [facility] [id number] SP [id number] [facility] Health Care Commercial [id number] Self [id number] [employer] P[employer] O [id number] P [id number] [employer] P[employer] O [id number] S [id number] [employer] [id number] Self [id number] [employer] [id number] Family Dependent [id number] [employer] [id number] Family Dependent [employer] [id number] Self [employer] Commercial [id number] Family Dependent [employer] Commercial [id number] Self [employer] Commercial [id number] Self [employer] Commercial [id number] Family Dependent [facility] Healthcare F [id number] SELF [id number] UMR O [id number] P [id number] [facility] [id number] SP [id number] UMR O UNAVAILABLE P UNAVAILA BLE [facility] O [id number] P [id number] [facility] MCDO [id number] SP [id number] [facility] O [id number] P [id number] Problems, Conditions, and Diagnoses No Information Surgeries/Procedures Procedure Description Date Indications Data Source(s) OFFICE OUTPATIENT VISIT 25 MINUTES 10/20/2020 12:00:00 AM [facility] CRUZ ([facility] Mammogram 10/08/2020 12:00:00 AM DESHAWN ROLLINS ([facility] OFFICE OUTPATIENT VISIT 15 MINUTES 09/24/2020 12:00:00 AM EDT [facility] ([facility]) OFFICE OUTPATIENT VISIT 25 MINUTES 08/17/2020 12:00:00 AM EDT [facility] ([facility] PERIODIC PREVENTIVE MED EST PATIENT 40-64YRS 12:00:00 AM EDT [facility] ([facility] Results ID Date Data Source [id number] 11/20/2020 09:25:00 AM EDT [facility] ([facility] Name Value Range Interpretation Code Description Data Ashleigh rce(s) Supporting Document(s) Coronavirus 2019 Nasopharygeal Laboratory test result [facility] ([facility] ASSAY INFORMATION: Real Time RT-PCR NOTE: The COVID-19 assay has been cleared by the U.S. Food and Drug Administration under the Emergency Use Authorization (EUA). [facility] are designated as high complexity laboratories by the Clinical Laboratory Improvement Amendments of 1988(CLIA) and are qualified to perform this test. Not Detected ID Date Data Source [id number] 09/24/2020 12:00:00 AM EDT [facility] Name Value Range Interpretation Code Description Data Ashleigh rce(s) Supporting Document(s) SARS-CoV2 Rapid Antigen Negative [facility] This lab was reported by [facility]. ID Date Data Source [id number] 05/10/2020 07:18:28 AM EDT [facility] PCName: Carly CresposDOB: 1970Provider: Sharon Atkins: 05/07/2020 Reason For VisitCarly Gasca is here today for the right foot. Carly had her first Covid vaccine on 03/21/2020. Carly had her second Covid vaccine on 04/13/2020. Carly Gasca is an established patient here for follow up. Patient presents WB in regular shoes. 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 AssessmentRight third metatarsal bone bruise, possible stress fracture, improving significantly Plan<OBX.5.1><OBX.5.1.1> X- Ray I Ankle 2 Views </OBX.5.1.1><OBX.5.1.2> Foot 3 Views (XRays were ordered, obtained and interpreted</OBX.5.1.2></OBX.5.1>today in the office. Indication: pain/dysfunction.); Status:Complete; Done: 07May2020 Perform:SOS22; Due:21May2020; Last Updated By:Katerine Keller; 05/07/2020 2:40:09 PM;Ordered; For:Ankle pain; Ordered By:Dario Atkins;Laterality: : Right Patient is a 49-year-old female who presents today status post injury that occurred in the past. She had her right leg give out on her causing her to fall and then resulting in right foot pain. The patient presents today for reevaluation. She states she has discontinued the cam boot and has been wearing a good supportive sneaker with good results. She states she continues to have some mild discomfort but feels that it is improving overall.. She describes the pain is trace, aching, intermittent. Worse with prolonged weightbearing better with rest.Physical exam reveals no erythema or ecchymoses. Skin is warm dry and intact. Range of motion of the ankle is mildly limited. No tenderness palpation along the lateral malleolus. She does have tenderness palpation along the third metatarsal although this is trace. No tenderness palpation along the remaining metatarsals. Neurovascular intact distally has a 2+ dorsalis pedis pulse.X-rays of the right and ankle foot were ordered, obtained and interpreted today in office. 3 views, AP/lateral/Oblique. Indication: Pain/dysfunction. These show no acute osseous abnormalities. No callus seen about the third metatarsal. Assessment:1. See assessment sectionPlan:This point I think the patient is improving and doing well. She will continue with utilizing good supportive shoe and continue with activities as tolerated. I think she is continuing to improve and feeling better. She can follow-up with us as needed at this point and she will call if she does not continue to improve or plateaus. Signatures Electronically signed by : Yoli Nick; May 07 2020 3:44PM EST (Author) Electronically signed by : Marjorie Walters M.D.; May 10 2020 7:18AM EST Name Value Range Interpretation Code Description Data Ashleigh rce(s) Supporting Document(s) ID Date Data Source [id number] 04/11/2020 09:39:37 PM EST [facility] PCName: Carly CresposDOB: 1970Provider: Sharon Atkins: 04/06/2020 Reason For VisitCarly Gasca is here today for the right foot. Carly had her first Covid vaccine on 03/21/2020. Carly is scheduled to have her second Covid vaccine on 04/18/2020. Carly Gasca is an established patient here for follow up. Patient presents WB in a camboot. Patient states that the R foot is better, but not where she was hoping it would be. 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 AssessmentRight third metatarsal bone bruise, possible stress fracture Plan X-Ray I Foot - 3 views (XRays were ordered, obtained and interpreted today in theoffice. Indication: pain/dysfunction.); Status:Complete; Done: 06Apr2020 Perform:SOS22; Due:20Apr2020; Last Updated By:Demetris Russo; 04/06/2020 1:41:42 PM;Ordered; For:Pain of foot; Ordered By:Dario Atkins;Weight Bearing Status : Weight bearingLaterality: : Right Patient is a 49-year-old female who presents today status post injury that occurred about 4 weeks ago. She had her right leg give out on her causing her to fall and then resulting in right foot pain. The patient presents today for reevaluation. She states that she has been wearing the cam boot at all times for the last 4 weeks. She states that it is improving but it is not where she would like it to be.She describes the pain is mild, aching, intermittent. Worse with prolonged weightbearing better with rest.Physical exam reveals no erythema or ecchymoses. Skin is warm dry and intact. Range of motion of the ankle is mildly limited. She does have some mild swelling about the lateral malleolus. No tenderness palpation along the lateral malleolus. She does have tenderness palpation along the third metatarsal. No tenderness palpation along the remaining metatarsals. Neurovascular intact distally has a 2+ dorsalis pedis pulse.X-rays of the right foot were ordered, obtained and interpreted today in office. 3 views, AP/lateral/Oblique. Indication: Pain/dysfunction. These show no acute osseous abnormalities. No callus seen about the third metatarsal. No evidence of fracture at this point although this cannot be ruled out.Assessment:1. See assessment sectionPlan:At this point we discussed with the patient she could have a metatarsal stress fracture still versus a bone bruise. We will have the patient continue with utilizing the boot for another 2 weeks and then start to come out of the boot and weight-bear as tolerated in a good supportive stiff soled sneaker.Should the patient remain in significant pain at that point we will consider obtaining an MRI to further evaluate the area.New x-rays at next visit. Ankle and foot. Signatures Electronically signed by : Yoli Nick; Apr 06 2020 3:01PM EST (Author) Electronically signed by : Marjorie Walters M.D.; Apr 11 2020 9:39PM EST Name Value Range Interpretation Code Description Data Ashleigh e(s) Supporting Document(s) ID Date Data Source [id number] 03/09/2020 09:30:44 AM EST [facility] PCName: Carly CresposDOB: 1970Provider: Marck Walters: 03/09/2020 Reason For VisitCarly Gasca is here today for the right foot. Carly Gasca is an established patient here for a new problem. Patient states her right leg gave out causing her to fall causing right foot pain. She is full weightbearing. 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 AssessmentCURRENT PROBLEM LIST 1. Right foot HISTORY OF PRESENT ILLNESSRight foot twisting injuryPain is located 3rd metatarsalPain is worse with prolonged standing and walking.No relieving factors noted.Associated swelling.No complaints of calf pain or shortness of breath.PHYSICAL EXAMINATION Constitutionally appears well and in no obvious distress.Patient is alert and oriented x 3 and exhibits normal mood and affect.Respiratory:Breathing at a regular rate.Vascular: Palpable 2+ pulses at the dorsalis pedis and posterior tibial level.Neurologic: Intact sensation to light touch in the superficial, peroneal and deep peroneal nerve distribution.No muscle atrophy in foot/ankle. Skin: No rashes or ulcerations noted.Musculoskeletal: Calf is non-tender on palpation.Right Ankle/Hindfoot Alignment of ankle is neutral.No swelling noted.No tenderness on palpation.Achilles is intact with no palpable defects.Ankle motion is normal.Ankle joint is stable.Right Midfoot/ForefootAlignment is neutral.No swelling noted.Tenderness on palpation 3rd metatarsalRADIOLOGICAL IMAGINGRadiographs were completed today in the clinic right foot 3 viewsImaging interpreted and no displaced fracture or dislocationMEDICAL DECISION MAKING Right 3rd metatarsal bone bruise, possible stress fracturePLAN1. I reviewed the diagnosis and treatment options with the patient. The patient would like to proceed with a short CAM boot.Boot to be reviewed at rest and night, only for ambulation, use a cane for safety/stability. Frequent ROM ankle encouraged, ankle pumps.Risk of deep vein thrombosis and pulmonary embolus reviewed with patient, including signs and symptoms. The patient is aware of the need to seek medical treatment immediately if experiencing any of these signs or symptoms. The patient is being prescribed a cam walker. The patient has weakness and instability of the foot, requiring stabilization from the orthosis to improve function. The patient will benefit from a medical standpoint in terms of pain and discomfort, and this will be an aid to ambulation.2. Instruction provided today in clinic for activity modification.3. Shoe wear modification recommendations given.4. Follow up is arranged. 5. X-rays of the upon return right foot Signatures Electronically signed by : Marjorie Walters M.D.; Mar 09 2020 9:30AM EST (Author) Name Value Range Interpretation Code Description Data Ashleigh rce(s) Supporting Document(s) ID Date Data Source [id number] 12/22/2019 07:12:35 AM EST [facility] PCName: Carly oSfiaOB: 1970Provider: Andrew Montano: 12/16/2019 Reason For VisitCarly Gasca is here today for Left Knee. Carly Gasca is an established patient here for follow up. The patient has had a course of physical therapy for greater than 4 weeks. Physical therapy and/or home exercise program has been effective. (TA). Patient is working at this time at regular duty. History of Present IllnessThis is a patient of Dr. Mcmullen who mistakenly came to the wrong office todayShe is here for follow-up of her left knee injury. Is been 2 months since the onset of her pain. She has been in physical therapy.She is happy to report that the knee does seem to be improving compared to when the initial pain started 2 months ago. She still has some soreness with certain activities. therapy has been very helpful.She occasionally is still getting some sharp catching discomfort medially AssessmentLeft knee pain improvingI suspect she has an internal derangement in the way of a medial meniscal tear but her symptoms are improvingShe will continue therapy as needed and follow-up with us as needed if she is still symptomatic after another 6 weeks or so she is welcome to return to see us. Plan Aqua Therapy (SOS) Referral Treatment Treatment Status: Complete Done:16Dec2019 Ordered;For: Left knee pain; Ordered By: Shabnam Montano Performed: Order Comments: MMT Due: 30Dec2019; Last Updated By: Alvina Fox; 12/16/2019 2:52:56 PMPT Protocol : Evaluate and treat as indicated, per protocol or as previously written.Duration: : Four WeeksPT Frequency : Two or three times a weekLaterality and Body Part : Left Knee Signatures Electronically signed by : Yoli Sousa; Dec 19 2019 4:54PM EST (Author) Electronically signed by : Cristo Mcmullen M.D.; Dec 22 2019 7:12AM EST Name Value Range Interpretation Code Description Data Ashleigh rce(s) Supporting Document(s) ID Date Data Source [id number] 10/21/2019 02:24:18 PM EDT [facility]Name: Carly CrespoMichelleOB: 1970Provider: Zofia Mcmullen: 10/21/2019 History of Present IllnessCarly is a 49-year-old female presenting to clinic for evaluation of left knee pain. Patient reports that she has been experiencing left knee pain for the past 5 days. Patient rates their pain as a 8 on a scale of 1-10 and reports the use of over the counter medications including Tylenol and NSAIDS. Patient denies any previous trauma and reports the use of an assistive devices. Additionally patient denies any history of physical therapy, steroid injections, or previous surgeries of the left knee. Patient also states that their pain has been constant for the past 5 days and states approximate 5 days ago she was seen and evaluated at an outside emergency department where x-rays were obtained which were negative for any acute findings. Patient was then given a knee immobilizer which she has remained in at all times along with the use of a crutch for ambulation and localizes her pain discomfort today on arrival mostly to the medial joint line of the left knee. Results/DataXRays were ordered, obtained and interpreted today in the office. Indication: pain/dysfunction. Side: Left Site: Knee Views: 3 Views, Standing AP, Lateral and Merchant's Findings: No fractures, dislocations, or other significant abnormalities. AssessmentLeft knee pain Plan X-Ray I Knee - 3 views (XRays were ordered, obtained and interpreted today in theoffice. Indication: pain/dysfunction.); Status:Complete; Done: [id number] Perform:SOS28; Due:[id number]; Last Updated By:Ceferino Crawford; 10/21/2019 2:07:36 PM;Ordered; For:Left knee pain; Ordered By:Brenden McmullenWeight Bearing Status : Weight bearingLaterality: : Left Physical Therapy (SOS) - General Treatment Treatment Status: Complete Done:[id number] Ordered;For: Left knee pain; Ordered By: Cristo Mcmullen Performed: Due: [id number]; Last Updated By: Corine Alba; 10/21/2019 2:21:28 PMPT Protocol : Evaluate and treat as indicated, per protocol or as previously written.Duration: : Six WeeksPT Frequency : Two or three times a weekLaterality and Body Part : left knee Plan:- I discussed the diagnosis and treatment options in detail with the patient .- I have prescribed outpatient physical therapy as initial conservative management of her left knee complaints at this time as I believe her signs and symptoms are due to a mild exacerbation of her underlying osteoarthritis I would recommend at this time discontinuing the use of a knee immobilizer and is only making her left knee stiff and painful and at this point should be ranging her knee with no restrictions which the patient is in agreement with and would like to proceed with this glputykra-Nfmq-jsz-counter anti-inflammatories as needed for pain control- Recommended daily physical activity along with use of stationary bike for exercise to continue to work on and maintain knee range of motion and quadriceps strength-Follow up in clinic in 8 weeks for repeat evaluation of her left knee- All questions were answered with patient and instructed to call office for sooner appointment if symptoms worsen or have any further questions Signatures Electronically signed by : Cristo Mcmullen M.D.; Oct 21 2019 2:24PM EST (Author) Name Value Range Interpretation Code Description Data Ashleigh rce(s) Supporting Document(s) Procedure Social History Code Duration Value Status Description Data Source(s ) Smoking 10/20/2020 12:00:00 AM EDT Patient has never smoked co mpleted Patient has never smoked [facility] ([facility] Smoking 10/24/2019 12:00:00 AM EDT Never Smoked Cigarettes com pleted Never Smoked Cigarettes [facility] ([facility]) Vital Signs ID Date Data Source UNK Name Value Range Interpretation Code Description Data Source(s) Body temperature 97.4 [degF] 97.4 [degF] [facility] ([facility] Respiratory rate 16 /min 16 /min [facility] ( [facility] Body height 61.25 [in_i] 61.25 [in_i] [facility] ([facility] 5'1.25" Body weight 190.12 [lb_av] 190.12 [lb_av] [facility] ([facility] Oxygen saturation in Arterial blood by Pulse oximetry 95 % 95 % [facility] Body mass index (BMI) [Ratio] 35.6 kg/m2 35.6 k g/m2 [facility] ([facility] [place] body weight 105 [lb_av] 105 [lb_av] [facility] ([facility] Systolic blood pressure 113 mm[Hg] 113 mm[Hg] [facility] ([facility] Diastolic blood pressure 85 mm[Hg] 85 mm[Hg] [facility] ([facility] Heart rate 93 /min 93 /min [facility] ([facility] Systolic blood pressure 139 mm[Hg] 139 mm[Hg] [facility] ([facility]) Diastolic blood pressure 101 mm[Hg] 101 mm[Hg] [facility] ([facility]) Heart rate 59 /min 59 /min [facility] ([facility]) Respiratory rate 19 /min 19 /min [facility] ( [facility]) Oxygen saturation in Arterial blood by Pulse oximetry 98 % 98 % [facility] ([facility]) Body temperature 99.3 [degF] 99.3 [degF] [facility] ([facility]) Body weight 185.00 [lb_av] 185.00 [lb_av] [facility] ([facility]) Body height 60 [in_i] 60 [in_i] [facility] ([facility]) 5'0" Body mass index (BMI) [Ratio] 36.1 kg/m2 36.1 k g/m2 [facility] ([facility]) Body weight 84.937 kg 84.937 kg [facility] ([facility]) Body surface area Derived from formula 1.83 m2 1.83 m2 [facility] ([facility]) Body mass index (BMI) [Ratio] 36.0 kg/m2 36.0 k g/m2 [facility] ([facility]) [place] body weight 100 [lb_av] 100 [lb_av] [facility] ([facility]) Systolic blood pressure 128 mm[Hg] 128 mm[Hg] [facility] ([facility]) Diastolic blood pressure 90 mm[Hg] 90 mm[Hg] [facility] ([facility]) Body height 60.5 [in_i] 60.5 [in_i] [facility] ([facility]) 5'0.50" Body weight 187.25 [lb_av] 187.25 [lb_av] [facility] ([facility]) Systolic blood pressure 114 mm[Hg] 114 mm[Hg] [facility] ([facility] Respiratory rate 18 /min 18 /min [facility] ( [facility] Body height 61.25 [in_i] 61.25 [in_i] [facility] ([facility] 5'1.25" Body weight 191.50 [lb_av] 191.50 [lb_av] [facility] ([facility] Oxygen saturation in Arterial blood by Pulse oximetry 98 % 98 % [facility] ([facility] [place] body weight 105 [lb_av] 105 [lb_av] [facility] ([facility] Body mass index (BMI) [Ratio] 35.9 kg/m2 35.9 k g/m2 [facility] ([facility] Diastolic blood pressure 87 mm[Hg] 87 mm[Hg] [facility] ([facility] Heart rate 105 /min 105 /min [facility] ([facility] Body temperature 97.6 [degF] 97.6 [degF] [facility] ([facility]
--- OUTSIDE RECORDS SUMMARY | 2020-11-25 08:40 | CCD | Continuity of Care Document ---
Author Author Coni DURHAM M.D. Organization Unknown Address [address] [place] [address] Phone [phone] Care Team Providers Care Parlor Chaperone Name Role Phone Letha Christie N.P. AUTM [phone] AUTM Unavailable Problems Description No Information Available Social History Type Date Description Comments Sex Unknown ETOH Use 1-2 A Week Tobacco Use Start: Unknown Denies Smoking Recreational Drug Use Denies Drug Use Allergies, Adverse Reactions, Alerts Active Allergies Reaction Severity Comments Date Macrobid fever/chills 09/08/2020 Sulfa Hives 09/08/2020 Medications Active Medications SIG Qnty Indications Ordering Provide r Date Propranolol HCL 40mg Tablets 1 po daily Petrancosta, Bambi Jay, P.A. Primidone 50mg Tablets Take 1/2 Tablet By Mouth Every Day Unknown Famotidine 40mg Tablets 1 po daily Pleskach, Letha, N.P. Vitamin D3 1.25mg (75031 Ut) Capsu les 1 time weekly Pleskach, [...] lb BMI (Body Mass Index) 36.0 kg/m2 [place] Body Weight 100 lb Weight 84.937 kg BSA (Body Surface Area) 1.83 m2 Results Description No Information Available Procedures Description No Information Available Medical Devices Description No Information Available Encounters Description No Information Available Assessments Description No Information Available Plan of Treatment No Information Available Functional Status Description No Information Available Mental Status Description No Information Available Referrals Refer to Reason for Referral Status Appt Date Reji Durham M.D. COLONOSCOPY Scheduled 08/25/2020 [facility] [address] [place] [id number] [phone]
--- OUTSIDE RECORDS SUMMARY | 2020-11-25 08:40 | CCD | Continuity of Care Document ---
Author Author Coni [facility]ITSIE [facility] Organization Unknown Address [address] [place] [address] Phone [phone] Care Team Providers Care Mortgage Loan Processing Clerk Name Role Phone Kalia Goetz MD AUTM [phone] Tye Yoon MD AUTM [phone] Tracy Joshi AUTM [phone] Jose Schaeffer DPM AUTM [phone] [facility] - Surgery AUTM [phone] Problems Active Problems Provider Date Essential hypertension [...] Letha Christie FNP 08/17/2020 Vitamin D3 1.25mg (20665 Ut) Capsu les 1 cap by mouth [...] CPT Code Status Date Vaccine Lot # [id number] Given 04/13/2020 Pulmocide-Sars-(Cov id-19) vaccine, mRNA, LNP-S, PF, 30 mcg/ 0.3 mL 41254 Given 03/21/2020 Pfizer-Sars-(Cov id-19) vaccine, mRNA, LNP-S, PF, 30 mcg/ 0.3 mL 50960 Given 10/16/2011 MMR [id number] Vital Signs Date Vital Result Comment 10/20/2020 3:56pm BP Systolic 113 mmHg BP Diastolic 85 mmHg Heart Rate 93 /min Body Temperature 97.4 F Respiratory Rate 16 /min Height 61.25 inches 5'1.25" Weight 190.12 lb O2 % BldC Oximetry 95 % Peak Expiratory Flow Rate 331 Estimated Peak Flow Rate [place] Body Weight 105 lb BMI (Body Mass Index) 35.6 kg/m2 08/17/2020 1:28pm BP Systolic 114 mmHg BP Diastolic 87 mmHg Heart Rate 105 /min Body Temperature 97.6 F Respiratory Rate 18 /min Height 61.25 inches 5'1.25" Weight 191.50 lb O2 % BldC Oximetry 98 % Peak Expiratory Flow Rate 331 Estimated Peak Flow Rate [place] Body Weight 105 lb BMI (Body Mass Index) 35.9 kg/m2 Results Description No Information Available Procedures Date Code Description Status 10/08/2020 88512911 Mammogram Completed 08/17/2020 97861 Preventive Medicine 40/64 Years, Est. Completed 08/17/2020 51652 Office/Outpatient Established Mo d MDM 30-39 Min Completed 09/22/2014 74623030 Mammogram Completed Medical Devices Description No Information Available Encounters Type Date Location Provider Dx Diagnosis Office Visit 08/17/2020 1:45p Main Office Letha Christie, BUNG DROPPER Z00.0 0 Encntr for general adult medical exam w/o abnormal findings I10 Essential (primary) hyperten deangelo F43.23 Adjustment disorder with mix ed anxiety and depressed mood G25.0 Essential tremor N32.81 Overactive bladder Assessments Date Code Description Provider 10/20/2020 I10 Essential (primary) hypertension Pleskach, Letha, BUNG DROPPER 10/20/2020 F43.23 Adjustment disorder with mixed a nxiety and depressed mood Pleskach, Letha, BUNG DROPPER 10/20/2020 G25.0 Essential tremor Pleskach, Letha , BUNG DROPPER 10/20/2020 N32.81 Overactive bladder Pleskach, Mol ly, BUNG DROPPER 08/17/2020 Z00.00 Encounter for genera l adult medical examination without abnormal findings Pleskach, Letha, BUNG DROPPER 08/17/2020 I10 Essential (primary) hypertension Pleskach, Letha, BUNG DROPPER 08/17/2020 F43.23 Adjustment disorder with mixed a nxiety and depressed mood Pleskach, Letha, BUNG DROPPER 08/17/2020 G25.0 Essential tremor Pleskach, Letha , BUNG DROPPER 08/17/2020 N32.81 Overactive bladder Pleskach, Mol ly, BUNG DROPPER Plan of Treatment Future Appointment(s):* 01/19/2021 4:15 pm - Letha Christie BUNG DROPPER at Main Office 10/20/2020 - PlelenchoachLetha, BUNG DROPPER* I10 Essential (primary) hypertension* Comments:* controlled, continue current medications * F43.23 Adjustment disorder with mixed anxiety and depressed mood* Comments:* doing well on current medication, feels she has adequate coping mechanisms * G25.0 Essential tremor* Follow up:* 3 months * N32.81 Overactive bladder Functional Status Functional Condition Comment Date Status Bifocal glasses Active Independent with all ADL's Activ e Negative for Fall Risk Inactive Negative for Cognitive Impairment Inactive Mental Status Mental Condition Comment Date Status None Active Referrals Refer to Reason for Referral Status Appt Date [facility] Patient is due for 1st screening colonoscopy. Thank you. Closed 08/25/2020 [address] [facility], [address] [place] [address] [phone]
--- OUTSIDE RECORDS SUMMARY | 2020-11-25 08:40 | CCD | Continuity of Care Document ---
Author Author Coni DURHAM M.D. Organization Unknown Address [address] [facility] [address] [place] [address] Phone [phone] Care Team Providers Care Hearing Healthcare Practitioner Name Role Phone Letha Christie N.P. AUTM [phone] AUTM Unavailable Problems Description No Information Available [...] 40mg Tablets 1 po daily Petrancosta, Bambi Door, P.A. Primidone 50mg Tablets Take 1/2 Tablet By Mouth Every Day Unknown Famotidine 40mg Tablets 1 po daily Pleskach, Letha, N.P. Vitamin D3 1.25mg (40888 Ut) Capsu les 1 time weekly Pleskach, [...] lb BMI (Body Mass Index) 36.0 kg/m2 [place] Body Weight 100 lb Weight 84.937 [...] Date Reji Durham M.D. COLONOSCOPY Scheduled 08/25/2020 [facility] [address] [place] [id number] [phone]
--- OUTSIDE RECORDS SUMMARY | 2020-11-25 08:40 | CCD | Continuity of Care Document ---
Author Author Coni DURHAM M.D. Organization Unknown Address [address] [facility] [address] [place] [address] Phone [phone] Care Team Providers Care Continuous Miner Operator Name Role Phone Letha Christie N.P. AUTM [phone] AUTM Unavailable Problems Description No Information Available [...] 40mg Tablets 1 po daily Petrancosta, Bambi [place], P.A. Primidone 50mg Tablets Take 1/2 Tablet By Mouth Every Day Unknown Famotidine 40mg Tablets 1 po daily Pleskach, Letha, N.P. Vitamin D3 1.25mg (74848 Ut) Capsu les 1 time weekly Pleskach, [...] lb BMI (Body Mass Index) 36.0 kg/m2 [place] Body Weight 100 lb Weight 84.937 kg [...] Date Reji Durham M.D. COLONOSCOPY Scheduled 08/25/2020 [facility] [address] [place] [phone]
--- OUTSIDE RECORDS SUMMARY | 2020-11-25 08:40 | CCD | Continuity of Care Document ---
Author Author Coni CLAUDIO GA Organization Unknown Address [address] [place] [address] Phone [phone] Care Team Providers Care Director Federal Name Role Phone Angélica Leon MD [facility] [phone] Problems Description No Information Available Social History Type Date Description Comments Sex Unknown ETOH Use Occasionally consumes alcohol Tobacco Use Start: Unknown No Smoking Status Reviewed: 09/24/20 No Allergies, Adverse Reactions, Alerts Active Allergies Criticality Reaction | Severity Comments Date Sulfa Unable to assess criticality 12/22/2007 Macrobid Unable to assess criticality rash 01/20/2012 Medications Active Medications SIG Qnty Indications Ordering Provide r Date Amoxicillin 875mg Tablets take one tablet every 12 hrs.x 10 days. 20tabs J01.10 Hai Cannon JR., M.D. 09/24/2020 Flonase Allergy Relief 50mcg/Act Suspension 1 spray each nare every day 16gm Hai torres JR., M.D. 04/16/2018 Potassium Citrate 1080mg Tablets ER 2 od Unknown Viibryd 10mg Tablets Unknown Vitamin D (Ergocalciferol) 41316Isfn Capsules Unknown Claritin 10mg Capsules 1 by mouth every day Unknown Immunizations Description No Information Available Vital Signs Date Vital Result Comment 09/24/2020 3:15pm BP Systolic 139 mmHg BP Diastolic 101 mmHg Heart Rate 59 /min Respiratory Rate 19 /min O2 % BldC Oximetry 98 % Body Temperature 99.3 F Weight 185.00 lb Height 60 inches 5'0" BMI (Body Mass Index) 36.1 kg/m2 Pain Level 3 04/16/2018 4:37pm BP Systolic 138 mmHg BP Diastolic 100 mmHg Heart Rate 100 /min O2 % BldC Oximetry 98 % Body Temperature 99.4 F Weight 188.00 lb Height 60 inches 5'0" BMI (Body Mass Index) 36.7 kg/m2 Pain Level 7 Results Description No Information Available Procedures Date Code Description Status 09/24/2020 19512 Office/Outpatient Established Lo w MDM 20-29 Min Completed Medical Devices Description No Information Available Encounters Type Date Location Provider Dx Diagnosis Office Visit 09/24/2020 3:20p Main Office PRAVEENA Sen J01 .10 Acute frontal sinusitis, unspecified Z20.828 Contact w and exposure to ot h viral communicable diseases Assessments Date Code Description Provider 09/24/2020 J01.10 Acute frontal sinusitis, unspeci fied PRAVEENA Sen 09/24/2020 Z20.828 Contact with and (lora spected) exposure to other viral communicable diseases PRAVEENA Sen Plan of Treatment No Information Available Functional Status Description No Information Available Mental Status Description No Information Available Referrals Description No Information Available
--- OUTSIDE RECORDS SUMMARY | 2020-11-25 08:40 | CCD | Continuity of Care Document ---
Author Author Coni CLAUDIO DE Organization Unknown Address [address] [place] [address] Phone [phone] Care Team Providers Care Telecom Sales Consultant Name Role Phone Angélica Leon MD [facility] [phone] Problems Description No Information Available Social History [...] Viibryd 10mg Tablets Unknown Vitamin D (Ergocalciferol) 98479Ggvf Capsules Unknown Claritin 10mg Capsules 1 by [...] Available Procedures Date Code Description Status 09/24/2020 29489 Office/Outpatient Established Lo w MDM 20-29 Min [...]
[2020-11-25] MEDS ORDERED: LIDOCAINE 2% 100MG/5ML SDV (FOR ANES.) As Ordered ONE (10:10)
[2020-11-25] MEDS ORDERED: propofoL 200 MG/20 ML VIAL As Ordered ONE (10:10)
--- NOTE | 2020-11-25 10:48 | ROOR ---
Patient Name: Coni Gasca Procedure Date: 11/25/2020 10:12 AM Date of : 1970 Age: 50 Room: [facility] Gender: Female Note Status: Finalized Procedure: Colonoscopy Indications: Screening for colorectal malignant neoplasm, This is the patient's first colonoscopy Providers: Reji Durham MD Referring MD: Angélica Leon MD Requesting Provider: Medicines: Monitored Anesthesia Care Complications: No immediate complications. Procedure: Pre-Anesthesia Assessment: - Prior to the procedure, a History and Physical was performed, and patient medications and allergies were reviewed. The patient is competent. The risks and benefits of the procedure and the sedation options and risks were discussed with the patient. All questions were answered and informed consent was obtained. Patient identification and proposed procedure were verified by the physician, the nurse and the carbide grinder in the procedure room. Mental Status Examination: alert and oriented. Airway Examination: normal oropharyngeal airway and neck mobility. Prophylactic Antibiotics: The patient does not require prophylactic antibiotics. Prior Anticoagulants: The patient has taken no previous anticoagulant or antiplatelet agents. ASA Grade Assessment: II - A patient with mild systemic disease. After reviewing the risks and benefits, the patient was deemed in satisfactory condition to undergo the procedure. The anesthesia plan was to use monitored anesthesia care (MAC). Immediately prior to administration of medications, the patient was re-assessed for adequacy to receive sedatives. The heart rate, respiratory rate, oxygen saturations, blood pressure, adequacy of pulmonary ventilation, and response to care were monitored throughout the procedure. The physical status of the patient was re-assessed after the procedure. The Colonoscope was introduced through the anus and advanced to the terminal ileum. The colonoscopy was performed without difficulty. The patient tolerated the procedure well. The quality of the bowel preparation was good. Findings: The perianal and digital rectal examinations were normal. A few small-mouthed diverticula were found in the sigmoid colon and descending colon. The exam was otherwise without abnormality. The terminal ileum appeared normal. Impression: - Diverticulosis in the sigmoid colon and in the descending colon. - The examination was otherwise normal. - No specimens collected. Recommendation: - Discharge patient to home. - Resume previous diet. - Continue present medications. - Repeat colonoscopy in 10 years for screening purposes. Procedure Code(s): --- Professional --- 86554, Colonoscopy, flexible; diagnostic, including collection of specimen(s) by brushing or washing, when performed (separate procedure) Diagnosis Code(s): --- Professional --- Z12.11, Encounter for screening for malignant neoplasm of colon K57.30, Diverticulosis of large intestine without perforation or abscess without bleeding CPT copyright 2019 [employer]. All rights reserved. The codes documented in this report are preliminary and upon keel press operator review may be revised to meet current compliance requirements. Reji Durham MD Reji Durham MD 11/25/2020 10:47:38 AM Electronically signed by Reji Durham MD Number of Addenda: 0 Note Initiated On: 11/25/2020 10:12 AM Estimated Blood Loss: Estimated blood loss: none.
[2020-11-25 11:10] VITALS: BP 153/95
== END 2020-11-25 11:17 | disposition home or self-care (01) ==
LOC: M OPP 08:34
PROVIDERS: ATTEND Surgery
DX: Z12.11 Encounter for screening for malignant neoplasm of colon (principal); K57.30 Diverticulosis of large intestine without perforation or abscess without bleeding; Z79.899 Other long term (current) drug therapy; Z88.0 Allergy status to penicillin; Z88.1 Allergy status to other antibiotic agents; Z88.2 Allergy status to sulfonamides

== ENCOUNTER → 2021-08-31 | Outpatient (CLI) | payer OTHER ==
[~2021-08-31] MED LIST changes: -NS 1,000 ML IV ONE; -VITA200015 PO; +VITA200035 PO
[2021-08-31 12:54] LABS: ALBUMIN 3.8 GM/DL (3.2-5.2); ALT/SGPT 19 U/L (12-78); BILIRUBIN,TOTAL 0.3 MG/DL (0.2-1.0); BLOOD UREA NITROGEN 16 MG/DL (7-18); CALCIUM LEVEL 9.3 MG/DL (8.5-10.1); CARBON DIOXIDE LEVEL 31 MEQ/L (21-32); CHLORIDE LEVEL 107 MEQ/L (98-107); CHOLESTEROL LEVEL 226 MG/DL (<200); CHOLESTEROL RISK RATIO 3.766 (<5); CREATININE FOR GFR 0.92 MG/DL (0.55-1.30); GLOMERULAR FILTRATION RATE > 60.0 (>51); GLUCOSE, FASTING 105 MG/DL (70-100); HDL CHOLESTEROL 60 MG/DL (>40); LDL CHOLESTEROL 143 MG/DL (<100); NON-HDL-C 166 MG/DL; POTASSIUM SERUM 4.3 MEQ/L (3.5-5.1); SODIUM LEVEL 142 MEQ/L (136-145); TOTAL PROTEIN 7.7 GM/DL (6.4-8.2); TRIGLYCERIDES LEVEL 114 MG/DL (<150)
[2021-08-31 13:26] LABS: HEMOGLOBIN A1c 5.6 %
== END ==
LOC: M WUC 09:35
PROVIDERS: ATTEND Nurse Practitioner Family
DX: I10 Essential (primary) hypertension (principal); R73.01 Impaired fasting glucose

== ENCOUNTER 2022-03-10 14:22 | Emergency (ER) | payer OTHER ==
[~2022-03-10] VITALS: Ht 154.9 cm; Wt 79.5 kg
[2022-03-10 14:23] VITALS: BP 156/92
[2022-03-10 15:14] LABS: HEMATOCRIT 38.8 % (36.0-47.0); HEMOGLOBIN 12.7 g/dl (12.0-15.5); MEAN CORPUSCULAR HEMOGLOBIN 29.5 pg (27.0-33.0); MEAN CORPUSCULAR HGB CONC 32.7 g/dl (32.0-36.5); PLATELET COUNT, AUTOMATED 310 10^3/uL (150-450); RED BLOOD COUNT 4.31 10^6/uL (4.00-5.40); WHITE BLOOD COUNT 7.8 10^3/uL (4.0-10.0)
[2022-03-10 15:46] LABS: AMPHETAMINES LEVEL URINE NEGATIVE (NEGATIVE)
[2022-03-10 15:47] LABS: BARBITURATES URINE NEGATIVE (NEGATIVE); BENZODIAZEPINES URINE NEGATIVE (NEGATIVE); CANNABINOIDS URINE NEGATIVE (NEGATIVE); COCAINE METABOLITE URINE NEGATIVE (NEGATIVE); METHADONE URINE NEGATIVE (NEGATIVE); OPIATES URINE NEGATIVE (NEGATIVE); PHENCYCLIDINE URINE NEGATIVE (NEGATIVE)
[2022-03-10 15:49] LABS: ETHYL ALCOHOL (ETHANOL) 0.004 % (0.000-0.010)
[2022-03-10 15:50] LABS: ACETAMINOPHEN LEVEL < 2.0 UG/ML (10.0-20.0)
[2022-03-10 15:51] LABS: ALBUMIN 3.6 G/DL (3.2-5.2); ALKALINE PHOSPHATASE 101 U/L (46-116); ALT/SGPT 18 U/L (7.0-40); AST/SGOT 18 U/L (<34); BILIRUBIN,DIRECT < 0.1 MG/DL (<0.4); BILIRUBIN,TOTAL 0.3 MG/DL (0.3-1.2); BLOOD UREA NITROGEN 23 MG/DL (9-23); CALCIUM LEVEL 9.6 MG/DL (8.5-10.1); CARBON DIOXIDE LEVEL 26 MMOL/L (20-31); CHLORIDE LEVEL 104 MMOL/L (98-107); CREATININE FOR GFR 0.84 MG/DL (0.55-1.30); GLOMERULAR FILTRATION RATE > 60.0 (>51); GLUCOSE, FASTING 90 MG/DL (60-100); POTASSIUM SERUM 3.6 MMOL/L (3.5-5.1); SALICYLATE LEVEL < 3.0 MG/DL (<30); SODIUM LEVEL 139 MMOL/L (136-145); TOTAL PROTEIN 7.7 G/DL (5.7-8.2)
[2022-03-10 15:52] LABS: THYROID STIMULATING HORMONE 1.042 uIU/ML (0.55-4.78)
== END 2022-03-10 15:58 | disposition left against medical advice (07) ==
LOC: M ED 14:22
DX: F43.0 Acute stress reaction (principal); F41.9 Anxiety disorder, unspecified; Z79.899 Other long term (current) drug therapy; Z88.0 Allergy status to penicillin; Z88.1 Allergy status to other antibiotic agents; Z88.2 Allergy status to sulfonamides; Z88.8 Allergy status to other drugs, medicaments and biological substances; Z90.49 Acquired absence of other specified parts of digestive tract; Z86.69 Personal history of other diseases of the nervous system and sense organs; Z87.442 Personal history of urinary calculi; Z98.890 Other specified postprocedural states

== ENCOUNTER → 2022-12-29 | Outpatient (CLI) | payer OTHER ==
[2022-12-29 12:35] LABS: BLOOD UREA NITROGEN 20 MG/DL (9-23); CALCIUM LEVEL 8.7 MG/DL (8.5-10.1); CARBON DIOXIDE LEVEL 31 MMOL/L (20-31); CHLORIDE LEVEL 107 MMOL/L (98-107); CREATININE FOR GFR 0.77 MG/DL (0.55-1.30); GLOMERULAR FILTRATION RATE > 60.0 (>51); GLUCOSE, FASTING 89 MG/DL (60-100); POTASSIUM SERUM 4.1 MMOL/L (3.5-5.1); SODIUM LEVEL 142 MMOL/L (136-145)
== END ==
LOC: M LAB 11:42
PROVIDERS: ATTEND Urology
DX: N20.0 Calculus of kidney (principal)

== ENCOUNTER → 2023-03-16 | Outpatient (CLI) | payer OTHER ==
[2023-03-16 18:19] LABS: BASO # 0.1 10^3/uL (0.0-0.2); BASO % 0.8 % (0.0-1.0); EOS # 0.1 10^3/uL (0.0-0.5); EOS % 1.9 % (0.0-3.0); HEMATOCRIT 35.7 % (36.0-47.0); HEMOGLOBIN 11.4 g/dl (12.0-15.5); LYMPH # 2.2 10^3/uL (1.5-5.0); LYMPH % 34.1 % (24.0-44.0); MEAN CORPUSCULAR HEMOGLOBIN 29.5 pg (27.0-33.0); MEAN CORPUSCULAR HGB CONC 31.9 g/dl (32.0-36.5); MEAN CORPUSCULAR VOLUME 92.5 fl (80.0-96.0); MONO # 0.6 10^3/uL (0.0-0.8); MONO % 8.8 % (2.0-8.0); NEUTROPHILS # 3.5 10^3/uL (1.5-8.5); NEUTROPHILS % 54.2 % (36.0-66.0); PLATELET COUNT, AUTOMATED 278 10^3/uL (150-450); RED BLOOD COUNT 3.86 10^6/uL (4.00-5.40); WHITE BLOOD COUNT 6.4 10^3/uL (4.0-10.0)
[2023-03-16 18:41] LABS: ALBUMIN 3.4 G/DL (3.2-5.2); BILIRUBIN,TOTAL 0.2 MG/DL (0.3-1.2); CALCIUM LEVEL 9.5 MG/DL (8.5-10.1); CREATININE FOR GFR 1.17 MG/DL (0.55-1.30); GLOMERULAR FILTRATION RATE 51.3 (>51); MAGNESIUM LEVEL 1.9 MG/DL (1.8-2.4); POTASSIUM SERUM 3.6 MMOL/L (3.5-5.1); TOTAL PROTEIN 6.9 G/DL (5.7-8.2)
[2023-03-16 18:44] LABS: THYROID STIMULATING HORMONE 0.949 uIU/ML (0.55-4.78)
[2023-03-16 18:45] LABS: FREE T4 0.98 NG/DL (0.89-1.76)
== END ==
LOC: M LAB 16:15
PROVIDERS: ATTEND Nurse Practitioner Family
DX: R07.89 Other chest pain (principal)

== ENCOUNTER → 2023-05-29 | Outpatient (CLI) | payer OTHER ==
[2023-05-29 13:01] LABS: CALCIUM LEVEL 9.6 MG/DL (8.5-10.1); CREATININE FOR GFR 1.1 MG/DL (0.55-1.30); GLOMERULAR FILTRATION RATE 55.1 (>51); POTASSIUM SERUM 4.1 MMOL/L (3.5-5.1)
[2023-05-29 13:20] LABS: HEMOGLOBIN A1c 5.6 % (4.0-6.0)
== END ==
LOC: M LAB 11:44
PROVIDERS: ATTEND Nurse Practitioner Family
DX: R73.03 Prediabetes (principal)

== ENCOUNTER 2023-06-26 09:14 | Emergency (ER) | payer OTHER ==
[~2023-06-26] VITALS: Ht 152.4 cm; Wt 80.8 kg
[2023-06-26] MEDS ORDERED: OXYB15TA14 (09:43)
[2023-06-26] MEDS ORDERED: VITA1CAP25 (09:43)
[2023-06-26] MEDS ORDERED: TOPI-21 (09:43)
[2023-06-26 12:02] LABS: BASO % 0.5 % (0.0-1.0); EOS # 0.2 10^3/uL (0.0-0.5); HEMATOCRIT 40.5 % (36.0-47.0); HEMOGLOBIN 13.5 g/dl (12.0-15.5); LYMPH # 2.6 10^3/uL (1.5-5.0); LYMPH % 30.6 % (24.0-44.0); MEAN CORPUSCULAR HEMOGLOBIN 30.3 pg (27.0-33.0); MEAN CORPUSCULAR HGB CONC 33.3 g/dl (32.0-36.5); MONO # 0.6 10^3/uL (0.0-0.8); MONO % 7.6 % (2.0-8.0); NEUTROPHILS % 59.1 % (36.0-66.0); PLATELET COUNT, AUTOMATED 331 10^3/uL (150-450); RED BLOOD COUNT 4.45 10^6/uL (4.00-5.40); WHITE BLOOD COUNT 8.4 10^3/uL (4.0-10.0)
[2023-06-26 12:31] LABS: LIPASE 41 U/L (12-53)
[2023-06-26 12:34] LABS: ALKALINE PHOSPHATASE 97 U/L (46-116); ALT/SGPT 26 U/L (7.0-40); AST/SGOT 13 U/L (<34); BILIRUBIN,DIRECT < 0.1 MG/DL (<0.4); BILIRUBIN,TOTAL 0.3 MG/DL (0.3-1.2); BLOOD UREA NITROGEN 15 MG/DL (9-23); CALCIUM LEVEL 9.6 MG/DL (8.5-10.1); CARBON DIOXIDE LEVEL 28 MMOL/L (20-31); CHLORIDE LEVEL 105 MMOL/L (98-107); CREATININE FOR GFR 0.77 MG/DL (0.55-1.30); GLOMERULAR FILTRATION RATE > 60.0 (>51); GLUCOSE, FASTING 96 MG/DL (60-100); POTASSIUM SERUM 3.9 MMOL/L (3.5-5.1); SODIUM LEVEL 139 MMOL/L (136-145); TOTAL PROTEIN 7.9 G/DL (5.7-8.2)
[2023-06-26] MEDS ORDERED: PSEU120T19 PO (12:50)
[2023-06-26] MEDS ORDERED: FLON1SPR NARES (12:50)
[2023-06-26 13:36] VITALS: BP 171/99; TEMP 97.5; O2SAT 96
== END 2023-06-26 13:38 | disposition home or self-care (01) ==
LOC: M ED 09:14
DX: R09.82 Postnasal drip (principal); R53.83 Other fatigue; Z88.0 Allergy status to penicillin; Z88.2 Allergy status to sulfonamides; Z88.8 Allergy status to other drugs, medicaments and biological substances; Z79.899 Other long term (current) drug therapy

== ENCOUNTER → 2024-02-25 | Outpatient (CLI) | payer OTHER ==
[~2024-02-25] MED LIST changes: +FLON1SPR NARES; +GABA-1172; -GABA-282; +OXYB15TA14; +PSEU120T19 PO; +TOPI-21; +VITA1CAP25
[2024-02-25 14:53] LABS: ALBUMIN 3.8 G/DL (3.2-5.2); BILIRUBIN,TOTAL 0.4 MG/DL (0.3-1.2); CALCIUM LEVEL 9.5 MG/DL (8.5-10.1); CHOLESTEROL RISK RATIO 3.92 (<5); CREATININE FOR GFR 1.12 MG/DL (0.55-1.30); GLOMERULAR FILTRATION RATE 53.8 (>51); HDL CHOLESTEROL 56.3 MG/DL (>40); LDL CHOLESTEROL 144.3 MG/DL (<100); NON-HDL-C 164.7 MG/DL; POTASSIUM SERUM 4.3 MMOL/L (3.5-5.1)
[2024-02-25 14:54] LABS: TOTAL 25(OH) VITAMIN D 82.1 NG/ML (20.0-100.0)
[2024-02-25 15:17] LABS: HEMOGLOBIN A1c 5.6 % (4.0-6.0)
== END ==
LOC: M PLALAB 11:41
PROVIDERS: ATTEND Nurse Practitioner Family
DX: I10 Essential (primary) hypertension (principal)

== ENCOUNTER 2024-08-07 10:13 | Day surgery (SDC) | payer OTHER ==
[~2024-08-07] VITALS: Ht 152.4 cm; Wt 83.5 kg
[~2024-08-07 10:13] MED LIST changes: +BUSP1TAB PO; +FEXO-112 PO; -OXYB15TA14; +OXYB15TA14 PO; +POTA-226 PO; -TOPI-21; +TOPI-21 PO; +VILA40TA PO; -VITA1CAP25; +VITA1CAP25 PO
[2024-08-07] MEDS ORDERED: LR 1,000 ML IV SCH (10:50)
[2024-08-07] MEDS ORDERED: ACETAMINOPHEN 1000MG/100ML IV BAG As Ordered ONE (12:29)
[2024-08-07] MEDS ORDERED: SUGAMMADEX SODIUM 500 MG/5 ML VIAL As Ordered ONE (12:30)
[2024-08-07] MEDS ORDERED: dexAMETHasone 4 MG/ML 1 ML VIAL As Ordered ONE (12:30)
[2024-08-07] MEDS ORDERED: LIDOCAINE 2% 100 MG/5 ML SDV (FOR ANES.) As Ordered ONE (12:30)
[2024-08-07] MEDS ORDERED: ONDANSETRON 4MG 2ML VIAL As Ordered ONE (12:30)
[2024-08-07] MEDS ORDERED: ROCURONIUM BROMIDE 50MG/5ML VIAL As Ordered ONE (12:30)
[2024-08-07] MEDS ORDERED: MIDAZOLAM INJ 2 MG/2 ML VIAL As Ordered ONE (12:34)
[2024-08-07] MEDS ORDERED: SCOPOLAMINE 1MG TRANSDERMAL PATCH TOP ONE (12:40)
[2024-08-07] MEDS ORDERED: HYDROmorphone HCL 2 MG/ML 1 ML VIAL As Ordered ONE (13:42)
[2024-08-07] MEDS: LIDOCAINE W/EPINEPHrine 1% 20 ML VIAL As Ordered ONE (13:45)
[2024-08-07] MEDS ORDERED: ONDANSETRON 4MG 2ML VIAL IV PRN (14:00)
[2024-08-07 15:30] VITALS: BP 132/72; TEMP 97.6; O2SAT 95
== END 2024-08-07 15:57 | disposition home or self-care (01) ==
LOC: M SDC 10:13
PROVIDERS: ATTEND Otolaryngology
DX: D10.39 Benign neoplasm of other parts of mouth (principal); F41.9 Anxiety disorder, unspecified; F32.A Depression, unspecified; K21.9 Gastro-esophageal reflux disease without esophagitis; Z79.899 Other long term (current) drug therapy; Z90.710 Acquired absence of both cervix and uterus; Z88.2 Allergy status to sulfonamides; Z88.0 Allergy status to penicillin; Z88.1 Allergy status to other antibiotic agents
CPT/HCPCS: 42140; 88305; J0131; J1100; J1171; J2250; J2405; J3010

== ENCOUNTER → 2024-10-30 | Outpatient (CLI) | payer OTHER ==
[2024-10-30 17:58] LABS: ESTIMATED AVERAGE GLUCOSE 126.0 MG/DL (60-110)
== END ==
LOC: M LAB 16:11
PROVIDERS: ATTEND Nurse Practitioner Family
DX: R73.03 Prediabetes (principal)